=== PATIENT | male | born 1960 | race Caucasian/White ===

== ENCOUNTER 2019-12-22 23:30 | Observation (INO) | payer SELFPAY ==
--- NOTE | ~2019-12-22 | CT_ITS ---
EXAMINATION: CT abdomen pelvis wo con DATE: 12/23/2019 09:55 INDICATION: Microscopic hematuria TECHNIQUE: Computed tomography (CT) of the abdomen and pelvis was performed without intravenous contr ast. The dose-length product (DLP) was 211.18 mGy-cm. Automated exposure control and iterative recons truction technique were employed. COMPARISON: 11/11/2010 FINDINGS: Minimal dependent atelectasis is present in the lung bases. The heart size is normal. There are healing bilateral rib fractures. The liver, spleen, pancreas, gallbladder, and adrenal glands ar e normal. There is a 1.5 cm cyst of the left kidney. There is a 6 mm hemorrhagic cyst of the left kid dulce. The right kidney is unremarkable. No stones are identified in the kidneys, ureters, or bladder. There is no hydronephrosis or hydroureter. A retroaortic left renal vein is noted. No pathologically enlarged abdominal or pelvic lymph nodes are identified. There is no free intraperitoneal gas or evid ence of bowel obstruction. There is severe spondylosis at L5-S1. IMPRESSION: 1. No CT correlate for the patient's symptoms. 2. Healing bilateral rib fractures. Reviewed, dictated and finalized at location A. ETIC SURVEYOR TECHNOLOGIST
[2019-12-22 23:32] VITALS: BP 134/113; PULSE 115; RESP 21; TEMP 36.7; O2SAT 95
--- NOTE | 2019-12-22 23:44 | ECG_ITS ---
Measurements Intervals [place] Rate: 107 P: 78 VT: 147 QRS: 73 QRSD: 86 T: 75 QT: 329 QTc: 440 Interpretive Statements SINUS TACHYCARDIA ATRIAL COUPLET BASELINE ARTIFACT- I, II, III, AVR, AVL, AVF, V1 ABNORMAL ECG Electronically Signed On 12-23-2019 6:55:13 HOUSEKEEPING CLEANER by Jareth Lee D.O.
[2019-12-23] VITALS (12 sets, daily range): BP systolic 127–148; BP diastolic 87–95; PULSE 95–116; RESP 16–26; TEMP 36.1–36.8; O2SAT 96–100; BMI 16.5
--- NOTE | 2019-12-23 00:02 | ED.OVERDOSE ---
HPI - Overdose General Chief Complaint: Overdose Stated Complaint: etoh Time Seen by Provider: 12/22/19 23:30 Source: patient and EMS Mode of arrival: EMS Limitations: no limitations History of Present Illness HPI Narrative: Patient is a 59-year-old male who presents to the emergency department with report of isopropyl alcohol ingestion. Patient states he drank half a bottle of rubbing alcohol today in attempts to get intoxicated. Patient is an alcoholic and normally drinks a pint of vodka daily. Patient states he had no ethanol in the house, hence why he drinks rubbing alcohol. Patient denies any suicidal or homicidal ideation and was not trying to harm himself. Patient denies any other symptoms or problems at this time. complaint: intentional overdose Onset (ago): unknown (sometime today) Intent: other (wanted to get drunk and did not have ethanol in the house) Context: Intentional Overdose: drug/ETOH problems Treatments Prior to Arrival: IV fluids and other (Thiamine 100 mg IV) Related Data Allergies Allergy/AdvReac Type Severity Reaction Status Date / Time morphine Allergy Unknown Verified 01/17/15 10:25 Review of Systems Review of Systems: All systems reviewed & are unremarkable except as noted in HPI and below Gastrointestinal: Gastrointestinal: Denies abdominal pain, Denies nausea and Denies vomiting PMFSH Past Medical History Medical History (Updated 12/23/19 @ 02:11 by Stefanie Simmons MD) Alcoholism Community acquired pneumonia COPD (chronic obstructive pulmonary disease) Diverticulosis Duodenal ulcer Gastritis GI bleed Hypertension Schatzki's ring Surgical History Surgical History (Updated 12/23/19 @ 00:09 by Stefanie Simmons MD) History of colonoscopy History of esophagogastroduodenoscopy (EGD) Family History Family History (Updated 06/23/14 @ 07:13 by DOCTOR UNKNOWN) Grandparent Family history of lymphoma Family history of heart disease in male family member before age 55 Social History Social History (Updated 12/23/19 @ 00:11 by Stefanie Simmons MD) Smoking packs per day: 1 Smoking cigarettes per day: 20.0 Smoking status: Current every day smoker Tobacco type: cigarettes Alcohol intake: current Alcohol use details: Alcoholic, drinks 1 pint of vodka daily Gender identity (if verbalized by the patient): Male Exam Const: General: cooperative, no acute distress, alert and ill appearing Nutritional Appearance: thin Orientation/consciousness: patient oriented x3 Limitations: no limitations HENMT: Mouth: Yes lip normal and Yes moist mucous membranes Resp: Effort & Inspection: normal respiratory effort Auscultation: clear to auscultation bilaterally Cardio: Rate: tachycardic Rhythm: regular rhythm GI: GI Palp: Yes Soft to palpation and No Tenderness to palpation present (GI) Auscultation: normal bowel sounds Skin: General skin exam: normal color Neuro: General: patient oriented x3 Cognition (Neuro): normal cognition Speech: normal speech Extrem: General: normal to inspection, full ROM and no clubbing, cyanosis or edema Psych: Mental Status: mental status grossly normal Affect: normal affect Attitude: cooperative Course Course Emergency Course: Patient presents with isopropyl alcohol ingestion and states she has symptomatic anemia he has influenza and with attempt to get intoxicated as patient had no ethanol at home. Probably poison control and she contacted and given patient clinically stable, supportive care recommended. Patient remains alert and appropriate on reevaluation. Patient advised admission plan. We will continue hydration. Consultations Consultation #1: Case discussed with Dr. Yan, drawer in hand, who advised patient sounds suitable for stepdown unit (IMU). Advised would except ICU of hospitalist felt uncomfortable with patient in IMU. Date: 12/23/19 Time: 01:52 Consultation #2: Case discussed with Dr. Mcqueen, hospitalist, w
--- NOTE | 2019-12-23 00:03 | PC.NURSE ---
called poison control at will fax information to us...supportative care
[2019-12-23 00:18] LABS: Alveolar/Arterial O2 Gradient 41.7 mmHg; Base Excess ABG 7.9 mEq/l (+/-2.0); Fractional Inspired Oxygen 21 %; Oxygen Content ABG 16.1 %vol (16.0-22.0); Oxygen Saturation ABG 91.8 % (95.0-100.0); Oxyhemoglobin 86.8 % THb (90.0-100.0); PCO2 ABG 42.5 mmHg (35.0-45.0); PO2 ABG 57.1 mmHg (80.0-100.0); PO2 FiO2 Ratio Arterial Blood 2.72 %; Total Hemoglobin 13.2 g/dL (12.0-18.0); pH ABG 7.494 (7.350-7.450)
[2019-12-23 00:19] LABS: Device ROOM AIR; Modified Allen's Test Pass; Site Drawn RIGHT RADIAL
[2019-12-23 00:47] LABS: Basophils Absolute Auto 0.1 K/mm3 (0.0-0.1); Basophils Percent Auto 0.6 % (0.2-1.2); Eosinophils Percent Auto 0.1 % (0-4.4); Hematocrit 34.8 % (42.0-52.0); Immature Granulocyte Absolute 0.04 K/mm3 (0.00-0.031); Immature Granulocyte Percent A 0.4 % (0-0.5); Lymphocytes Absolute Auto 0.63 K/mm3 (0.9-3.2); Lymphocytes Percent Auto 6.2 % (18.3-44.2); Mean Corpuscular HGB Conc 34.5 g/dl (32-36); Mean Corpuscular Hemoglobin 32.4 pg (26-34); Mean Corpuscular Volume 94.1 fl (80-100); Monocytes Absolute Auto 0.7 K/mm3 (0.1-0.6); Monocytes Percent Auto 7.3 % (2.6-8.5); Neutrophils Absolute Auto 8.7 K/mm3 (1.3-6.7); Neutrophils Percent Auto 85.4 % (45.5-73.1); Platelet Count Result 201 k/mm3 (150-375); Red Cell Distribution Width 14.2 % (11.5-14.5); White Blood Count 10.2 K/mm3 (4.5-10.0)
[2019-12-23 00:55] LABS: INR 0.9; Prothrombin Time 11.3 Seconds (11.1-14.7)
[2019-12-23 00:56] LABS: Partial Thromboplastin Time 25.8 SECONDS (22.3-36.8)
[2019-12-23 00:58] LABS: Acetaminophen < 10 ug/mL (10-30); Ethanol < 10 mg/dL (<10); Salicylate < 1.0 mg/dL (2-20)
[2019-12-23] MEDS: SODIUM CHLORIDE 0.9% IV 1,000 ML 999 ML IV CONT (00:58)
[2019-12-23 01:01] LABS: Alanine Aminotransferase 18 U/L (4-50); Albumin Level 4.4 g/dL (3.5-5.1); Alkaline Phosphatase 69 U/L (38-126); Aspartate Amino Transferase 41 U/L (17-59); Bilirubin,Total 0.5 mg/dL (0.2-1.3); Blood Urea Nitrogen 16 mg/dL (9-20); Calcium 8.7 mg/dL (8.4-10.2); Carbon Dioxide 30 mmol/L (22-30); Chloride 91 mmol/L (98-107); Creatine Kinase 153 U/L (55-170); Estimated Glomerular Filt Rate > 60; Glucose 151 mg/dL (75-110); Magnesium 1.8 mg/dL (1.6-2.3); Phosphorus 2.7 mg/dL (2.5-4.5); Potassium 3.8 mmol/L (3.4-5.0); Sodium 137 mmol/L (137-145)
[2019-12-23 01:35] LABS: Add Urine Microscopic? YES; Appearance Urine Clear (Clear); Bilirubin Urine Negative (Negative); Blood Urine 2+ (Negative); Color Urine Yellow (Yellow); Glucose Urine UA Negative (Negative); Ketones Urine 1+ mg/dL (Negative); Leukocyte Esterase Ur Negative LEU/UL (Negative); Mucus Urine Rare /lpf; Nitrate Urine Negative (Negative); Protein Urine 2+ mg/dL (Negative); RBC Urine >75 /hpf (0-2); Specific Grav Ur 1.025 (1.001-1.035); Squamous Epithelial Cell Urine Rare /hpf (Few)
[2019-12-23 01:54] LABS: Amphetamine Screen Urine Negative (Negative); Barbiturate Screen Urine Negative (Negative); Benzodiazepines Screen Urine Negative (Negative); Cannabinoid Screen Urine Negative (Negative); Cocaine Screen Urine Negative (Negative); Methadone Screen Urine Negative (Negative); Opiate Screen Urine Negative (Negative); Phencyclidine Screen Urine Negative (Negative)
--- NOTE | 2019-12-23 03:19 | PC.NURSE ---
PT REPORTS BEING UNABLE TO AFFORD MEDICATIONS SO HE HAS NOT BEEN TAKING THEM. PT ALSO UNSURE OF WHAT MEDICATIONS HE IS ONE AT THIS TIME.
--- NOTE | 2019-12-23 03:25 | PC.NURSE ---
POISON CONTROL CALLED FOR UPDATE.
[2019-12-23] MEDS: LORAZEPAM INJ 2 MG/ML VIAL 1 MG IV PUSH (03:49)
[2019-12-23] MEDS: SODIUM CHLORIDE 0.9% IV 1,000 ML 150 ML IV CONT (03:51)
--- NOTE | 2019-12-23 04:11 | ADMGEN ---
This patient, Deniz Waggoner, was admitted to IMU Room 201-01. Patient/family oriented to hospital policies and general routines including ID bracelet, bed and alarms, visiting hours, pain management, procedures, bathroom and other care routines, personal items, smoking policy, room service/diet, and visiting hours. Valuables list has been completed. Information on how to activate the Rapid Response Team has been discussed. Patient/Family are encouraged to report perceived risks to care and to ask questions if they do not understand what they are told or what they should do.
--- NOTE | 2019-12-23 08:45 | PM.IMHP ---
H&P: HPI History of Present Illness Chief complaint: isopropyl alcohol poisoning alcoholism Narrative: Date of visit 12/23/2019 0815. Deniz Waggoner is a 59 year old white male alcoholic with hypertension and COPD who is sound found at home lethargic at approximately 4:00 p.m. on the and discovered he had germaine at least a bottle isopropyl alcohol. There is no of self-harm, simply ran out of alcohol and was trying to get intoxicated. He usually drinks at least a pt of vodka daily. He arrived at the emergency room some 6 hours later with no symptoms of lightheadedness, altered mental status, or abdominal pain. Was evaluated and thought he should be admitted. He did have 1+ ketones in his urine. Review of Systems Review of Systems: Narrative: Constitutional weight has been steady appetite fair Eye no double vision or scotoma Mouth no pharyngitis laryngitis Pulmonary occasional shortness breath for which she uses inhaler CV no chest pain or palpitations GI no recent symptomatology with history of peptic ulcer disease completing ulcer in the distant past last EGD here in 2015 showed no varices denied any dysuria or urinary symptoms but would not elaborate but said occasionally has blood in his urine Muscle skeletal occasional pain and ankle from previous fracture Neuro psych states that he has gone through detoxification in the past primarily does with agitation and no history of seizures or DTs PMFSH Past Medical History Medical History (Updated 12/23/19 @ 08:52 by Julio Glass MD) Alcoholism Community acquired pneumonia COPD (chronic obstructive pulmonary disease) Diverticulosis Duodenal ulcer Gastritis GI bleed Hypertension Schatzki's ring Surgical History Surgical History (Updated 12/23/19 @ 00:09 by Stefanie Simmons MD) History of colonoscopy History of esophagogastroduodenoscopy (EGD) Social History Social History (Updated 12/23/19 @ 00:11 by Stefanie Simmons MD) Smoking packs per day: 1 Smoking cigarettes per day: 20.0 Smoking status: Current every day smoker Tobacco type: cigarettes Second hand tobacco smoke exposure: Yes Alcohol intake: current Drinks per week: 7 Alcohol use details: Alcoholic, drinks 1 pint of vodka daily Substance use: never Substance use type: does not use Other substance usage details: patient states his drinking varies day to day Gender identity (if verbalized by the patient): Male Spiritual care concerns: No Agree to blood products: Yes Meds Home Medications and Allergies Home Medications Medication Instructions Recorded Confirmed Type albuterol sulfate 2.5 mg INHALATION Q6H 12/23/19 12/23/19 History ascorbic acid (vitamin C) 1 g PO DAILY 12/23/19 12/23/19 History cholecalciferol (vitamin D3) 1,250 mcg PO DAILY 12/23/19 12/23/19 History [D3-50 Cholecalciferol] lisinopril 20 mg PO DAILY 12/23/19 12/23/19 History vitamin B complex [B-Complex] 1 tablet PO DAILY 12/23/19 12/23/19 History Allergies Allergy/AdvReac Type Severity Reaction Status Date / Time morphine Allergy Unknown Verified 01/17/15 10:25 Vital Signs Vital Signs - 24 hr 12/22/19 23:32 12/23/19 00:23 12/23/19 01:34 Temperature 36.7 C Pulse Rate 115 H 104 H 115 H Pulse Rate [Bilateral Radial Palpation] Respiratory Rate 21 H 24 H 16 Blood Pressure 134/113 H 128/92 H 143/89 H Pulse Oximetry 95 100 100 12/23/19 02:40 12/23/19 03:34 12/23/19 03:45 Temperature 36.8 C Pulse Rate 102 H 95 Pulse Rate [Bilateral Radial Palpation] 101 H Respiratory Rate 16 19 Blood Pressure 127/87 142/90 H 134/88 Pulse Oximetry 100 98 12/23/19 03:52 12/23/19 04:00 12/23/19 08:00 Temperature 36.7 C 36.1 C L Pulse Rate 103 H 113 H 102 H Pulse Rate [Bilateral Radial Palpation] 113 H Respiratory Rate 20 22 H Blood Pressure 134/88 148/95 H Pulse Oximetry 97 97 Exam Narrative: Exam Narrative: Blood pressure 148/94 pulse is 96 satura
[2019-12-23] MEDS: VITAMIN B COMPLEX CAPSULE 1 CAP PO (09:33)
[2019-12-23] MEDS: lisinopriL 20 MG TABLET PO (09:33)
[2019-12-23] MEDS: ASCORBIC ACID 500 MG TABLET 1000 MG PO (09:33)
[2019-12-23] MEDS: PANTOPRAZOLE 40 MG TABLET PO (09:41)
[2019-12-23] MEDS: ONDANSETRON INJ 4 MG/2 ML VIAL IV PUSH (09:43)
[2019-12-23] MEDS: ALBUTEROL SULFATE NEB 2.5 MG/0.5 ML INH (11:29)
[2019-12-23] MEDS: IPRATROPIUM BR 0.02% INH SOLN 0.5 MG/2.5 ML VIAL (11:29)
--- NOTE | 2019-12-23 13:43 | PCNSR ---
On 12/23/19, the student, La Graves, provided care and completed [facility] documentation on this patient. I have reviewed the student's documentation and agree with the findings.
--- NOTE | 2019-12-23 18:32 | PM.DS ---
DS: Diagnosis Admitting Diagnosis Admitting Diagnosis: Toxic effect of 2-Propanol, accidental (unintentional), initial encounter Discharge Diagnosis (1) Isopropyl alcohol poisoning: Code(s): T51.2X1A - Toxic effect of 2-Propanol, accidental (unintentional), initial encounter Status: Acute Assessment and Plan: Patient is out of the window of concern for the isopropyl alcohol ingestion and only had 1+ ketones in his initial urinalysis. He has been hydrated and will be able to be discharged today (2) Alcoholism: Code(s): F10.20 - Alcohol dependence, uncomplicated Status: Acute Assessment and Plan: Ongoing alcohol problem. Been given thiamin and benzo diazepam while here with only symptoms of very mild withdrawal that is tremor and mild tachycardia. (3) Microscopic hematuria: Code(s): R31.29 - Other microscopic hematuria Status: Acute Assessment and Plan: Per urinalysis. Asymptomatic but patient gives a history of intermittent gross hematuria. Needs further evaluation probably with urologist cysto Noncontrast CT scan abdomen and pelvis showed no source of hematuria. Benign renal cyst only (4) COPD (chronic obstructive pulmonary disease): Code(s): J44.9 - Chronic obstructive pulmonary disease, unspecified Status: Acute Assessment and Plan: Ongoing controlled will use his updraft, patient states not unusual for him to wheeze on a daily basis (5) Hypertension: Code(s): I10 - Essential (primary) hypertension Status: Acute Assessment and Plan: Continue his anti hypertensive probably poor controlled poor compliance DS: Summary Hospital Course Hospital Course: 59-year-old hypertensive alcoholic with COPD admitted to the hospital for observation after ingesting unknown quantity of isopropyl alcohol when he could not obtain any alcohol. His son found him and brought into the emergency room some 6 hours after ingestion with no on toward effects. Did have 1+ ketones urine only. With discharged home to the care of his family follow-up with the primary care for further evaluation of microscopic hematuria Time Spent with Patient Time attestation: Total time spent providing and/or coordinating discharge services: 35 minutes Exam Narrative: Exam Narrative: Condition on discharge Blood pressure 144/92 pulse is 100 regular afebrile Lungs prolonged expiratory phase very faint end expiratory wheeze CV tachy no murmurs or gallops Abdomen is soft nontender no masses Extremities without edema distal pulses 2+ Neuro alert no focal deficits oriented x3 With hydrated and tolerated a diet well and able to be discharged home to follow-up with his primary care DS: Data Data Completed and Pending Labs on day of discharge: Labs from last 24 hours 12/23/19 12/23/19 12/23/19 01:22 01:22 01:22 WBC RBC Hgb Hct MCV MCH MCHC RDW Plt Count MPV Immature Gran % (Auto) Neut % (Auto) Lymph % (Auto) [place] % (Auto) Eos % (Auto) Baso % (Auto) Lymph # (Auto) [place] # (Auto) Eos # (Auto) Baso # (Auto) Abs Immat Gran (auto) Absolute Neuts (auto) Absolute Nucleated RBC Nucleated RBC % PT INR APTT Puncture Site ABG pH ABG pCO2 ABG pO2 ABG PO2/FiO2 Ratio ABG HCO3 ABG O2 Saturation ABG O2 Content ABG Base Excess A-a Gradient Oxyhemoglobin Total Hemoglobin O2 Delivery Device O2 Liters/Min FiO2 Sodium Potassium Chloride Carbon Dioxide BUN Creatinine Estim Creat Clear Calc Estimated GFR Glucose Serum Osmolality Calcium Phosphorus Magnesium Total Bilirubin AST ALT Alkaline Phosphatase Total Creatine Kinase Total Protein Albumin Urine Color Yellow Urine Appearance Clear Urine pH 8.0 Ur Specific [place] 1.025 Urine Protein 2+ H Urine Glucose (UA
[2019-12-27 11:51] LABS: Methyl Alcohol Level None Detected (None Detected)
== END 2019-12-23 12:00 | disposition home or self-care (01) ==
LOC: ANHED 12-23 02:11 → ANHIMU 12-23 03:11
PROVIDERS: Admitting Provider Internal Medicine; Emergency Provider Emergency Medicine; PCP Family Medicine; Visit Provider Internal Medicine
DX: T51.2X1A Toxic effect of 2-Propanol, accidental (unintentional), initial encounter (principal); F10.230 Alcohol dependence with withdrawal, uncomplicated; F17.210 Nicotine dependence, cigarettes, uncomplicated; R31.29 Other microscopic hematuria; J44.9 Chronic obstructive pulmonary disease, unspecified; I10 Essential (primary) hypertension
CPT/HCPCS: 36415; 36600; 74176; 80053; 80307; 80320; 81001; 82550; 82693; 82805; 83735; 83930; 84100; 84600; 85025; 85610; 85730; 93005; 94640; 96374; 96375; 99285; A9270; G0378; G0379; J2060; J2405; J7030

== ENCOUNTER 2020-06-06 15:53 | Observation (INO) | payer MEDICAID, SELFPAY ==
[2020-06-06] VITALS (10 sets, daily range): BP systolic 89–149; BP diastolic 59–107; PULSE 79–114; RESP 16–20; TEMP 36.3–36.7; O2SAT 87–97; BMI 22.6
--- NOTE | ~2020-06-06 | CT_ITS ---
EXAMINATION: CT abdomen pelvis w con EXAM DATE: 06/06/2020 17:55 INDICATION: Hematuria for 10 days, passing blood clots. TECHNIQUE: Spiral CT of the abdomen and pelvis was performed following intravenous injection of 100 m L Omnipaque 350. Axial, coronal and sagittal images were reviewed. The dose-length product (DLP) fo r this examination was 508.13 mGy-cm. The exposure was tailored according to patient size (auto mA e xposure control), and iterative reconstruction (ASIR) was used as additional dose reduction technique . Comparison is made to prior examination from 12/23/2019. FINDINGS: The liver, spleen, adrenal glands and pancreas are unremarkable. Gallbladder is unremarkab le. No biliary obstruction. Portal and splenic veins are patent. Kidneys enhance symmetrically. T here is no hydronephrosis. The prostate is unremarkable. There is right lateral bladder wall diver ticulum measuring 2 cm. There is a left renal cyst measuring 2 cm. There is no retroperitoneal or pe lvic lymphadenopathy. There is mild scattered arteriosclerotic disease. The appendix is normal. The stomach and small bowel are unremarkable. There is expected amount of c olonic stool. No free intraperitoneal gas. The heart is normal in size. There are no pericardial or pleural effusions. The lung bases are unremarkable. Bilateral lower rib fractures, varying stag es of subacute to chronic healing. IMPRESSION: 1. Small bladder diverticulum. 2. Left renal cyst, otherwise unremarkable kidneys. Reviewed, dictated and finalized at location A.
--- NOTE | ~2020-06-06 | XR_ITS ---
EXAMINATION: XR chest 1V EXAM DATE: 06/06/2020 17:58 INDICATION: Hypertension, cough and dyspnea. TECHNIQUE: Portable AP frontal chest x-ray was obtained. Comparison is made to prior examination from 01/24/2011. FINDINGS: The lungs are clear. There are no pleural effusions. The cardiomediastinal silhouette is within normal limits. There is no pneumothorax suspected. Bilateral lower rib fractures, subacute t o chronic. IMPRESSION: No acute cardiopulmonary findings. Reviewed, dictated and finalized at location A.
--- NOTE | ~2020-06-06 | CT_ITS ---
EXAMINATION: CT brain wo con EXAM DATE: 06/06/2020 17:54 INDICATION: Altered mental status. TECHNIQUE: Spiral CT of the head was performed without contrast. Axial, coronal and sagittal images were reviewed. The dose-length product (DLP) for this examination was 681.00 mGy-cm. The exposure w as tailored according to patient size, and iterative reconstruction (ASIR) was used as additional dos e reduction technique. Comparison is made to prior examination from 11/07/2010. FINDINGS: There is no acute intraparenchymal hemorrhage. No evidence of intraparenchymal brain mass lesion. No evidence of acute infarction. Mild microangiopathy and cerebral atrophy. There is no mass effect or midline shift. The ventricles are normal in size. There are no extra-axial collections. There are no acute calvarial fractures. The orbits are unremarkable. Soft tissue is unremarkable. The visualized sinuses and mastoid air cells are well aerated. IMPRESSION: No acute intracranial findings. Reviewed, dictated and finalized at location A.
--- NOTE | 2020-06-06 16:36 | ED.FEMALEGU ---
HPI - Female Genitourinary General Chief complaint: Urogenital-Male Stated complaint: hematuria/low bp and o2 Time Seen by Provider: 06/06/20 16:36 Source: patient and family Mode of arrival: ambulatory Limitations: no limitations History of Present Illness HPI Narrative: Patient is a 60-year-old male with a history of COPD, hypertension, chronic alcohol use who presents for evaluation of hematuria. Patient reports a 10-day history of gross hematuria and blood clots with urination. Patient denies dysuria, hesitancy or frequency. No flank pain or history of kidney stone. Patient denies fever or chills. He reports intermittent nausea, he reports chronic cough, he reports chronic shortness of breath with heat which he states are all at baseline for him. He denies any chest pain. Patient states he drinks approximately a pint of alcohol daily. He is a daily smoker. He states that he was without his inhaler prescription which can sometimes worsen his COPD. Patient denies fever, chills, COVID exposures known to him. Pt denies drinking any isopropyl alcohol. Related Data Home Medications Medication Instructions Recorded Confirmed albuterol sulfate 2.5 mg INHALATION Q6H 12/23/19 12/23/19 ascorbic acid (vitamin C) 1 g PO DAILY 12/23/19 12/23/19 cholecalciferol (vitamin D3) 1,250 mcg PO DAILY 12/23/19 12/23/19 [D3-50 Cholecalciferol] lisinopril 20 mg PO DAILY 12/23/19 12/23/19 vitamin B complex [B-Complex] 1 tablet PO DAILY 12/23/19 12/23/19 Allergies Allergy/AdvReac Type Severity Reaction Status Date / Time morphine Allergy Unknown Flushing Verified 06/06/20 16:56 Review of Systems Review of Systems: Narrative: CONSTITUTIONAL: Denies fever, chills, or sweats. EYES: Denies visual changes, redness, or discharge. ENT: Reports rhinorrhea and congestion CARDIOVASCULAR: Denies chest pain, palpitations, or edema. RESPIRATORY: Reports chronic cough and shortness of breath GASTROINTESTINAL: Denies abdominal pain, reports nausea, denies vomiting GENITOURINARY: Denies dysuria, reports hematuria SKIN: Denies rash or itching. MUSCULOSKELETAL: Denies back pain, joint pain, or myalgia. NEUROLOGIC: Denies headache, numbness, or weakness. PMFSH Past Medical History Medical History Alcoholism Community acquired pneumonia COPD (chronic obstructive pulmonary disease) Diverticulosis Duodenal ulcer Gastritis GI bleed Hypertension Schatzki's ring Surgical History Surgical History History of colonoscopy History of esophagogastroduodenoscopy (EGD) Family History Family History Grandparent Family history of lymphoma Family history of heart disease in male family member before age 55 Social History Social History Smoking packs per day: 1 Smoking cigarettes per day: 20.0 Smoking status: Current every day smoker Tobacco type: cigarettes Second hand tobacco smoke exposure: Yes Alcohol intake: current Drinks per week: 7 Substance use: never Substance use type: does not use Other substance usage details: patient states his drinking varies day to day Gender identity (if verbalized by the patient): Male Spiritual care concerns: No Agree to blood products: Yes Exam Narrative: Exam Narrative: GENERAL: Awake, alert, conversant, intoxicated HEAD: Normocephalic, atraumatic. EYES: PERRLA and EOMI. ENT: Nares clear, no rhinorrhea or epistaxis. Mucous membranes moist. NECK: Supple. CHEST: No respiratory distress, breathing even and non labored, coarse breath sounds bilaterally, expiratory wheezing at the bases HEART: Tachycardic rate, sinus rhythm ABDOMEN:Non distended, non tender, no suprapubic tenderness EXTREMITIES: Normal range of motion. No edema. SKIN: Warm, dry, no rash. NEURO:No focal defic
[2020-06-06 16:42] LABS: Basophils Absolute Auto 0.1 K/mm3 (0.0-0.1); Basophils Percent Auto 1.3 % (0.2-1.2); Eosinophils Absolute Auto 0.2 K/mm3 (0-0.3); Eosinophils Percent Auto 1.8 % (0-4.4); Hemoglobin 10.4 g/dL (14.0-18.0); Immature Granulocyte Absolute 0.06 K/mm3 (0.00-0.031); Immature Granulocyte Percent A 0.7 % (0-0.5); Mean Corpuscular HGB Conc 31.5 g/dl (32-36); Mean Corpuscular Hemoglobin 28.2 pg (26-34); Mean Corpuscular Volume 89.4 fl (80-100); Mean Platelet Volume 8.7 fl (7.4-10.4); Monocytes Absolute Auto 0.8 K/mm3 (0.1-0.6); Monocytes Percent Auto 9.2 % (2.6-8.5); Neutrophils Absolute Auto 5.8 K/mm3 (1.3-6.7); Platelet Count Result 348 k/mm3 (150-375); Red Blood Count 3.69 M/mm3 (4.6-6.20); Red Cell Distribution Width 19.3 % (11.5-14.5); White Blood Count 8.4 K/mm3 (4.5-10.0)
--- NOTE | 2020-06-06 16:45 | ECG_ITS ---
Measurements Intervals [place] Rate: 105 P: 49 [place]: 121 QRS: 77 QRSD: 82 T: 72 QT: 336 QTc: 444 Interpretive Statements SINUS TACHYCARDIA MINIMAL Q WAVES- INFERIOR LEADS ABNORMAL ECG Electronically Signed On 06-06-2020 19:35:04 CDT by Jareth Lee D.O.
[2020-06-06 16:52] LABS: Alanine Aminotransferase 11 U/L (4-50); Alkaline Phosphatase 76 U/L (38-126); Anion Gap 15 mmol/L (8-16); Aspartate Amino Transferase 36 U/L (17-59); Bilirubin,Total 0.2 mg/dL (0.2-1.3); Blood Urea Nitrogen 20 mg/dL (9-20); Calcium 8.3 mg/dL (8.4-10.2); Carbon Dioxide 22 mmol/L (22-30); Chloride 96 mmol/L (98-107); Estimated CRCL calculation 60 ml/min; Estimated Glomerular Filt Rate > 60; Glucose 75 mg/dL (75-110); Lipase 141 U/L (23-300); Potassium 4.3 mmol/L (3.4-5.0); Sodium 133 mmol/L (137-145)
[2020-06-06 16:53] LABS: INR 0.8; Prothrombin Time 10.8 Seconds (11.1-14.7)
[2020-06-06 16:54] LABS: Partial Thromboplastin Time 25.2 SECONDS (22.3-36.8)
[2020-06-06] MEDS: SODIUM CHLORIDE 0.9% IV 1,000 ML 999 ML IV CONT ×2 (16:55→18:05)
[2020-06-06 17:13] LABS: Alveolar/Arterial O2 Gradient 45.3 mmHg; Base Excess ABG -5.8 mEq/l (+/-2.0); Fractional Inspired Oxygen 28 %; HCO3 ABG 20.5 mEq/l (22.0-26.0); Oxygen Content ABG 14.4 %vol (16.0-22.0); Oxygen Saturation ABG 97.1 % (95.0-100.0); Oxyhemoglobin 91.8 % THb (90.0-100.0); PCO2 ABG 43.7 mmHg (35.0-45.0); PO2 ABG 102.8 mmHg (80.0-100.0); PO2 FiO2 Ratio Arterial Blood 3.67 %
[2020-06-06 17:14] LABS: Device NASAL CANNULA; Modified Allen's Test Pass; Site Drawn LEFT RADIAL
[2020-06-06 17:35] LABS: Ammonia < 9 umol/L (9-30); Ethanol 292 mg/dL (<10)
[2020-06-06 17:38] LABS: Lactic Acid Reflex 4.5 mmol/L (0.7-2.1)
[2020-06-06 17:49] LABS: Troponin I 0.012 ng/mL (0.000-0.034)
[2020-06-06 18:32] LABS: Creatine Kinase 95 U/L (55-170)
--- NOTE | 2020-06-06 18:33 | PC.NURSE ---
1830 oxygen on at 2L for sao2 88%
[2020-06-06 18:40] LABS: Amphetamine Screen Urine Negative (Negative); Barbiturate Screen Urine Negative (Negative); Benzodiazepines Screen Urine Negative (Negative); Cannabinoid Screen Urine Negative (Negative); Cocaine Screen Urine Negative (Negative); Methadone Screen Urine Negative (Negative); Opiate Screen Urine Negative (Negative); Phencyclidine Screen Urine Negative (Negative)
[2020-06-06 19:08] LABS: Add Urine Microscopic? YES; Appearance Urine Cloudy (Clear); Bilirubin Urine Negative (Negative); Blood Urine 3+ (Negative); Glucose Urine UA Negative (Negative); Ketones Urine Negative (Negative); Leukocyte Esterase Ur Negative LEU/UL (Negative); Mucus Urine Rare /lpf; Nitrate Urine Negative (Negative); Protein Urine 2+ mg/dL (Negative); RBC Urine >75 /hpf (0-2); Specific Grav Ur 1.027 (1.001-1.035); Urobilinogen Urine Negative mg/dL (<2.0); WBC Clumps Urine Present /HPF; WBC Urine >75 /hpf
[2020-06-06 19:09] LABS: Color Urine Dark Yellow (Yellow)
[2020-06-06 20:23] LABS: Reflex Lactic Acid Yes or No Add Lactic
[2020-06-06] MEDS: NICOTINE (*PBKC) 14 MG PATCH 1 PATCH TRANSDERM (21:13)
--- NOTE | 2020-06-06 21:33 | ADMGEN ---
This patient, Deniz Waggoner, was admitted to IMU Room 212-01. Patient/family oriented to hospital policies and general routines including ID bracelet, bed and alarms, visiting hours, pain management, procedures, bathroom and other care routines, personal items, smoking policy, room service/diet, and visiting hours. Valuables list has been completed. Information on how to activate the Rapid Response Team has been discussed. Patient/Family are encouraged to report perceived risks to care and to ask questions if they do not understand what they are told or what they should do.
[2020-06-07] VITALS (21 sets, daily range): BP systolic 143–180; BP diastolic 95–105; PULSE 73–107; RESP 16–22; TEMP 36.2–36.8; O2SAT 94–99
[2020-06-07 04:36] LABS: Hematocrit 30.1 % (42.0-52.0); Hemoglobin 9.5 g/dL (14.0-18.0); Mean Corpuscular HGB Conc 31.6 g/dl (32-36); Mean Corpuscular Hemoglobin 27.8 pg (26-34); Mean Platelet Volume 8.5 fl (7.4-10.4); Platelet Count Result 300 k/mm3 (150-375); Red Blood Count 3.42 M/mm3 (4.6-6.20); Red Cell Distribution Width 18.9 % (11.5-14.5); White Blood Count 8.6 K/mm3 (4.5-10.0)
[2020-06-07 04:50] LABS: Lactic Acid 1.1 mmol/L (0.7-2.1)
[2020-06-07 05:07] LABS: Anion Gap 8 mmol/L (8-16); Blood Urea Nitrogen 13 mg/dL (9-20); Calcium 7.9 mg/dL (8.4-10.2); Carbon Dioxide 26 mmol/L (22-30); Chloride 99 mmol/L (98-107); Estimated CRCL calculation 114 ml/min; Estimated Glomerular Filt Rate > 60; Glucose 97 mg/dL (75-110); Magnesium 1.8 mg/dL (1.6-2.3); Phosphorus 2.8 mg/dL (2.5-4.5); Potassium 4.3 mmol/L (3.4-5.0); Sodium 133 mmol/L (137-145)
[2020-06-07] MEDS: ALBUTEROL SULFATE NEB 2.5 MG/3 ML INH INHALATION ×2 (08:42→13:45)
[2020-06-07] MEDS: ASCORBIC ACID 500 MG TABLET 1000 MG PO (09:26)
[2020-06-07] MEDS: lisinopriL 20 MG TABLET PO (09:27)
[2020-06-07] MEDS: THIAMINE HCL 100 MG TABLET PO (09:27)
[2020-06-07] MEDS: VITAMIN B COMPLEX CAPSULE 1 CAP PO (09:27)
--- NOTE | 2020-06-07 14:25 | WPDURCON ---
Assessment and Plan Assessment and plan (1) Gross hematuria: Code(s): R31.0 - Gross hematuria Status: Acute Assessment and Plan: CT shows a small bladder diverticulum and a renal cyst that is benign. Urine culture is pending, continue IV antibiotics, tailor to culture results, likely a UTI which would be the source of the gross hematuria. Patient will need to follow up as an outpatient for a cystoscopy in the office with Dr. Mcgovern and to have a PSA done at that time once infection resolves. NO further evaluation needed at this time. Ok to discharge when otherwise stable with appropriate oral antibiotics. (2) BPH (benign prostatic hyperplasia): Code(s): N40.0 - Benign prostatic hyperplasia without lower urinary tract symptoms Status: Acute Assessment and Plan: Start and continue Flomax. Urology Consult Note HPI Date Seen: 06/07/20 Requesting Physician: Julio Glass MD Primary Care Provider: Harpal Kasper MD Consult Narrative Narrative: Deniz Waggoner is a 60 year old male who presented to the ER yesterday with worsening gross hematuria x 10 days and blood clots. His urine is caren in color today without clots. He denies dysuria, fever, abdominal pain, flank pain, but does state he has had hesitancy and straining with urination as well as nocturia and frequency for several months. He has never seen a urologist and never had gross hematuria before. He denies a history of kidney stones and does have a yearly physical with his PCP but is unsure of his last PSA. His WBC is 8.6, creatinine 0.60, UA is suspicious for a UTI and urine culture is pending. He has a history of alcoholism and has been diagnosed with septic shock and lactic acidosis. He also has a history of COPD. CT abdomen/pelvis with contrast shows a small bladder diverticulum and a left renal cyst, otherwise unremarkable kidneys. Review of Systems Cardiovascular: Cardiovascular: Denies chest pain Respiratory: Respiratory: Reports dyspnea Gastrointestinal: Gastrointestinal: Denies abdominal pain, Denies nausea and Denies vomiting Genitourinary: Genitourinary: Reports hematuria, Denies genital pain, Denies dysuria, Denies flank pain, Reports urinary frequency, Reports urinary hesitancy and Reports urinary urgency [facility] Past Medical History Medical History Alcoholism Community acquired pneumonia COPD (chronic obstructive pulmonary disease) Diverticulosis Duodenal ulcer Gastritis GI bleed Hypertension Schatzki's ring Surgical History Surgical History History of colonoscopy History of esophagogastroduodenoscopy (EGD) Family History Family History Grandparent Family history of lymphoma Family history of heart disease in male family member before age 55 Social History Social History Smoking packs per day: 1.5 Smoking cigarettes per day: 30.0 Years smoked: 40 Smoking pack-years: 60.00 Smoking status: Current every day smoker Tobacco type: cigarettes Second hand tobacco smoke exposure: Yes Alcohol intake: current Drinks per week: 20 Substance use: never Substance use type: does not use Other substance usage details: drinks a pint of gin a day Gender identity (if verbalized by the patient): Male Spiritual care concerns: No Agree to blood products: Yes Meds Home Medications and Allergies Home Medications Medication Instructions Recorded Confirmed Type albuterol sulfate 2.5 mg INHALATION Q6H 12/23/19 06/06/20 History ascorbic acid (vitamin C) 1 g PO DAILY 12/23/19 06/06/20 History cholecalciferol (vitamin D3) 1,250 mcg PO DAILY 12/23/19 06/06/20 History [D3-50 Cholecalciferol] lisinopril 20 mg PO DAILY 12/23/19 06/06/20 History vitamin B com
[2020-06-07] MEDS: chlordiazePOXIDE 10 MG CAPSULE PO ×2 (14:56→21:25)
--- NOTE | 2020-06-07 17:25 | PM.IMHP ---
H&P: HPI History of Present Illness Date/Time: 06/07/20 17:25 Chief complaint: Septic shock, dehydration Narrative: Deniz Waggoner is a 60 year old male admitted with hematuria for 10 days ? uti? prostate issues. Pt is known to have COPD, and is an chronic alcholic and has a history of HTN also. Smokes and drinks alcholol 1 pint if gin a day. Pt also admitted with septic shock and lactic acidosis. Urology consult ordered. Review of Systems Review of Systems: ROS unobtainable: Yes other (Hematuria and anxiety issues urinary frequency ) [facility] Past Medical History Medical History Alcoholism Community acquired pneumonia COPD (chronic obstructive pulmonary disease) Diverticulosis Duodenal ulcer Gastritis GI bleed Hypertension Schatzki's ring Surgical History Surgical History History of colonoscopy History of esophagogastroduodenoscopy (EGD) Family History Family History Grandparent Family history of lymphoma Family history of heart disease in male family member before age 55 Social History Social History Smoking packs per day: 1.5 Smoking cigarettes per day: 30.0 Years smoked: 40 Smoking pack-years: 60.00 Smoking status: Current every day smoker Tobacco type: cigarettes Second hand tobacco smoke exposure: Yes Alcohol intake: current Drinks per week: 20 Substance use: never Substance use type: does not use Other substance usage details: drinks a pint of gin a day Gender identity (if verbalized by the patient): Male Spiritual care concerns: No Agree to blood products: Yes Meds Home Medications and Allergies Home Medications Medication Instructions Recorded Confirmed Type albuterol sulfate 2.5 mg INHALATION Q6H 12/23/19 06/06/20 History ascorbic acid (vitamin C) 1 g PO DAILY 12/23/19 06/06/20 History cholecalciferol (vitamin D3) 1,250 mcg PO DAILY 12/23/19 06/06/20 History [D3-50 Cholecalciferol] lisinopril 20 mg PO DAILY 12/23/19 06/06/20 History vitamin B complex [B-Complex] 1 tablet PO DAILY 12/23/19 06/06/20 History Allergies Allergy/AdvReac Type Severity Reaction Status Date / Time morphine Allergy Unknown Flushing Verified 06/06/20 16:56 Vital Signs Vital Signs - 24 hr 06/06/20 18:10 06/06/20 20:08 06/06/20 21:09 Temperature Pulse Rate 90 92 97 Respiratory Rate 20 18 20 Blood Pressure 133/87 143/97 H Pulse Oximetry 94 96 92 06/06/20 21:35 06/06/20 21:37 06/06/20 21:56 Temperature 36.3 C L Pulse Rate 80 102 H 90 Respiratory Rate 20 Blood Pressure 147/77 H Pulse Oximetry 94 06/06/20 23:14 06/06/20 23:44 06/07/20 00:00 Temperature 36.3 C L Pulse Rate 93 79 86 Respiratory Rate 20 Blood Pressure 149/81 H Pulse Oximetry 94 93 06/07/20 01:47 06/07/20 04:00 06/07/20 06:00 Temperature 36.7 C Pulse Rate 82 73 86 Respiratory Rate 20 Blood Pressure 175/100 H Pulse Oximetry 97 06/07/20 08:00 06/07/20 08:43 06/07/20 08:45 Temperature 36.8 C Pulse Rate 89 89 89 Respiratory Rate 18 18 Blood Pressure 176/99 H Pulse Oximetry 95 95 06/07/20 08:48 06/07/20 10:00 06/07/20 12:00 Temperature 36.7 C Pulse Rate 89 89 95 Respiratory Rate 18 20 Blood Pressure 143/95 H Pulse Oximetry 99 06/07/20 13:45 06/07/20 14:00 06/07/20 14:26 Temperature Pulse Rate 97 101 H 97 Respiratory Rate 18 18 Blood Pressure Pulse Oximetry 06/07/20 16:00 Temperature 36.6 C Pulse Rate 84 Respiratory Rate 22 H Blood Pressure 156/95 H Pulse Oximetry 97 Exam Const: General: well developed Nutritional Appearance: well nourished HENMT: Head: normocephalic Eyes: General: appearance normal, both eyes and all related structures Pupils: Equal, round and reactive pupi
--- NOTE | 2020-06-07 18:00 | ECG_ITS ---
Measurements Intervals [place] Rate: 128 P: MO: 0 QRS: 48 QRSD: 72 T: 62 QT: 295 QTc: 432 Interpretive Statements SINUS TACHYCARDIA MINIMAL Q WAVES- ANTEROLAT/INF LEADS ABNORMAL ECG Electronically Signed On 06-08-2020 8:05:49 CDT by Jareth Lee D.O.
[2020-06-07] MEDS: TAMSULOSIN HCL 0.4 MG CAPSULE PO (18:32)
[2020-06-07] MEDS: SODIUM CHLORIDE 0.9% IV 1,000 ML 100 ML IV CONT (18:43)
--- NOTE | 2020-06-07 19:42 | PC.NURSE ---
EKG obtained at 1815 for sustained heart rate in the 130-140's. Patient noted to be in sinus tachycardia, with a rate of 128 on EKG. Patient denies chest pain, or shortness of breath. No complaints at this time. Dr. Levy notified of EKG results, no new orders at this time. Will continue to monitor closely.
[2020-06-07] MEDS: LEVALBUTEROL NEB 1.25 MG/3 ML 0.63 MG INHALATION (20:53)
[2020-06-07] MEDS: NICOTINE (*PBKC) 21 MG PATCH 1 PATCH TRANSDERM (21:25)
[2020-06-08] VITALS (22 sets, daily range): BP systolic 128–178; BP diastolic 85–112; PULSE 59–102; RESP 12–20; TEMP 35.9–36.6; O2SAT 87–97
[2020-06-08] MEDS: cloNIDine HCL 0.1 MG TABLET PO (01:08)
[2020-06-08] MEDS: LEVALBUTEROL NEB 1.25 MG/3 ML 0.63 MG INHALATION ×4 (02:27→19:57)
[2020-06-08 04:48] LABS: Hematocrit 31.3 % (42.0-52.0); Hemoglobin 10.1 g/dL (14.0-18.0); Mean Corpuscular HGB Conc 32.3 g/dl (32-36); Mean Corpuscular Hemoglobin 28.4 pg (26-34); Mean Corpuscular Volume 87.9 fl (80-100); Mean Platelet Volume 8.5 fl (7.4-10.4); Platelet Count Result 290 k/mm3 (150-375); Red Blood Count 3.56 M/mm3 (4.6-6.20); Red Cell Distribution Width 18.2 % (11.5-14.5); White Blood Count 6.8 K/mm3 (4.5-10.0)
[2020-06-08] MEDS: chlordiazePOXIDE 10 MG CAPSULE PO ×3 (04:57→20:50)
[2020-06-08] MEDS: SODIUM CHLORIDE 0.9% IV 1,000 ML 100 ML IV CONT ×2 (04:57→15:34)
[2020-06-08 05:05] LABS: Anion Gap 5 mmol/L (8-16); Blood Urea Nitrogen 8 mg/dL (9-20); Calcium 8.2 mg/dL (8.4-10.2); Carbon Dioxide 29 mmol/L (22-30); Chloride 98 mmol/L (98-107); Estimated CRCL calculation 137 ml/min; Estimated Glomerular Filt Rate > 60; Glucose 110 mg/dL (75-110); Potassium 3.8 mmol/L (3.4-5.0); Sodium 132 mmol/L (137-145)
[2020-06-08 05:06] LABS: Lactic Acid 0.6 mmol/L (0.7-2.1)
[2020-06-08] MEDS: VITAMIN B COMPLEX CAPSULE 1 CAP PO (09:43)
[2020-06-08] MEDS: THIAMINE HCL 100 MG TABLET PO (09:43)
[2020-06-08] MEDS: ASCORBIC ACID 500 MG TABLET 1000 MG PO (09:43)
[2020-06-08] MEDS: CHOLECALCIFEROL 1,000 UNIT TABLET 1000 UNITS PO (09:43)
[2020-06-08] MEDS: NICOTINE (*PBKC) 21 MG PATCH 1 PATCH TRANSDERM (09:44)
[2020-06-08] MEDS: TAMSULOSIN HCL 0.4 MG CAPSULE PO (09:44)
[2020-06-08] MEDS: lisinopriL 20 MG TABLET PO (09:44)
--- NOTE | 2020-06-08 13:06 | PC.NURSE ---
This patient, Deniz Waggoner, was received from IMU on 06/08/20 at 1306. Personal belongings list checked and signed. Patient/family oriented to unit policies and routines
--- NOTE | 2020-06-08 13:13 | PC.NURSE ---
This patient, Deniz Waggoner, was transferred to [[id number] ] on 06/08/20 at 1313. Personal belongings sent with patient. Belongings list checked and signed with receiving [ ]. Report given to [DIONI Gallegos ]. Appropriate documentation sent with patient.
--- NOTE | 2020-06-08 17:08 | PM.IMPN ---
Progress Note: A&P Assessment and Plan (1) BPH (benign prostatic hyperplasia): Code(s): N40.0 - Benign prostatic hyperplasia without lower urinary tract symptoms Status: Acute Assessment and Plan: SEen by urology flomax ordered (2) Gross hematuria: Code(s): R31.0 - Gross hematuria Status: Acute Assessment and Plan: Pt had clots with Hematuria today. watch cbc litzy, hopeful discharge litzy (3) Acute dehydration: Code(s): E86.0 - Dehydration Status: Resolved Assessment and Plan: off fluids (4) Acidosis, lactic: Code(s): E87.2 - Acidosis Status: Acute Assessment and Plan: Pt to have iv fluids and iv rocephin both stopped uc is negative lactic level is nl (5) Septic shock: Code(s): A41.9 - Sepsis, unspecified organism; R65.21 - Severe sepsis with septic shock Status: Resolved (6) COPD (chronic obstructive pulmonary disease): Code(s): J44.9 - Chronic obstructive pulmonary disease, unspecified Status: Acute Assessment and Plan: Breathing treatment and nicotine patch (7) Alcoholism: Code(s): F10.20 - Alcohol dependence, uncomplicated Status: Acute Assessment and Plan: CIWA, librium oral scheduled, ativan IV prn Subjective Date/time seen: 06/08/20 17:08 Interval history: Edilson is a 60 year old male admitted with hematuria for 10 days ? uti? prostate issues. Pt is known to have COPD, and is an chronic alcoholic and has a history of HTN also. Unfortunately pt had a episode of hematuria so we will watch him today. Review of Systems Review of Systems: ROS unobtainable: Yes other (episode of hematuria ) Exam Const: General: cooperative and healthy appearing; No in distress Nutritional Appearance: overweight Orientation/consciousness: oriented to person HENMT: Head: normal to inspection Resp: Effort & Inspection: no respiratory distress Auscultation: no rhonchi and no wheezes Cardio: Rate: regular rate Rhythm: regular rhythm GI: Inspection: normal to inspection GI Palp: No abdominal tenderness, No Guarding due to palpation present (GI) and No Hepatomegaly present Auscultation: normal bowel sounds Neuro: General: oriented to person Objective Data Vital Signs Vital Signs: Vital Signs - 24 hr 06/07/20 18:00 06/07/20 20:00 06/07/20 20:54 Temperature 36.4 C Pulse Rate 98 81 92 Respiratory Rate 20 18 Blood Pressure 172/103 H Pulse Oximetry 98 06/07/20 20:56 06/07/20 21:05 06/07/20 22:00 Temperature Pulse Rate 97 83 Respiratory Rate 18 Blood Pressure Pulse Oximetry 94 06/07/20 23:35 06/08/20 00:00 06/08/20 02:00 Temperature 36.2 C L Pulse Rate 83 76 76 Respiratory Rate 16 Blood Pressure 180/105 H Pulse Oximetry 98 06/08/20 02:12 06/08/20 02:28 06/08/20 02:36 Temperature Pulse Rate 59 L 61 Respiratory Rate 18 18 Blood Pressure 151/92 H Pulse Oximetry 06/08/20 04:00 06/08/20 04:44 06/08/20 05:51 Temperature 35.9 C L Pulse Rate 79 83 77 Respiratory Rate 18 Blood Pressure 147/98 H Pulse Oximetry 97 06/08/20 07:55 06/08/20 08:00 06/08/20 09:08 Temperature 35.9 C L Pulse Rate 88 83 84 Respiratory Rate 12 18 Blood Pressure 146/107 H 146/107 H Pulse Oximetry 94 97 06/08/20 09:14 06/08/20 09:31 06/08/20 10:29 Temperature Pulse Rate 87 Respiratory Rate 18 Blood Pressure Pulse Oximetry 87 L 94 06/08/20 12:00 06/08/20 14:02 06/08/20 14:13 Temperature 36.4 C L Pulse Rate 101 H 98 94 Respiratory Rate 12 18 18 Blood Pressure 146/105 H Pulse Oximetry 95 06/08/20 14:25 Temperature 36.4 C L Pulse Rate 102 H Respiratory Rate 19 Blood Pressure 128/85 Pulse Oximetry 97 Intake/Output Intake/Output: Intake & Output 06/05/20 06/06/20 06/07/20 06/08/20 23:59 23:59 23:59 23:59 Intake Total 2050 2903.2 2340 Output Total 600 4400 1150 Balance 1450 -1496.8 1190
[2020-06-09] VITALS (8 sets, daily range): BP systolic 152–179; BP diastolic 99–110; PULSE 82–100; RESP 18–20; TEMP 36.3–36.7; O2SAT 94–99
[2020-06-09] MEDS: SODIUM CHLORIDE 0.9% IV 1,000 ML 100 ML IV CONT (00:18)
[2020-06-09] MEDS: LABETALOL HCL INJ 100 MG/20 ML VIAL 10 MG IV PUSH (00:41)
[2020-06-09] MEDS: LEVALBUTEROL NEB 1.25 MG/3 ML 0.63 MG INHALATION ×2 (03:28→08:27)
[2020-06-09] MEDS: chlordiazePOXIDE 10 MG CAPSULE PO (05:08)
[2020-06-09 05:33] LABS: Hematocrit 31.6 % (42.0-52.0); Hemoglobin 9.9 g/dL (14.0-18.0); Mean Corpuscular HGB Conc 31.3 g/dl (32-36); Mean Corpuscular Hemoglobin 28.1 pg (26-34); Mean Corpuscular Volume 89.8 fl (80-100); Mean Platelet Volume 9.3 fl (7.4-10.4); Platelet Count Result 314 k/mm3 (150-375); Red Blood Count 3.52 M/mm3 (4.6-6.20); Red Cell Distribution Width 18.1 % (11.5-14.5); White Blood Count 7.4 K/mm3 (4.5-10.0)
[2020-06-09] MEDS: NICOTINE (*PBKC) 21 MG PATCH 1 PATCH TRANSDERM (08:20)
[2020-06-09] MEDS: TAMSULOSIN HCL 0.4 MG CAPSULE PO (08:21)
[2020-06-09] MEDS: THIAMINE HCL 100 MG TABLET PO (08:21)
[2020-06-09] MEDS: lisinopriL 20 MG TABLET PO (08:21)
--- NOTE | 2020-06-09 12:18 | PM.DS ---
DS: Admitting Diagnosis Admitting Diagnosis Admitting Diagnosis: Septic shock, dehydration DS: Discharge Diagnosis Discharge Diagnosis (1) BPH (benign prostatic hyperplasia): Code(s): N40.0 - Benign prostatic hyperplasia without lower urinary tract symptoms Status: Acute Assessment and Plan: Seen by urology flomax ordered, ptto follow up with them in clinic, psa is 0.7. hematuria has settled prior to discharge, uc was negative so pt was discharged home with out any further abx. (2) Gross hematuria: Code(s): R31.0 - Gross hematuria Status: Acute Assessment and Plan: Pt admitted with clots with Hematuria, hb is stable at 9. pt to stable for dc (3) Acute dehydration: Code(s): E86.0 - Dehydration Status: Resolved Assessment and Plan: pt has been on fluids, fluid hydration has put up his bps while in the hospital (4) Acidosis, lactic: Code(s): E87.2 - Acidosis Status: Acute Assessment and Plan: iv rocephin stopped uc is negative lactic level is nl (5) Septic shock: Code(s): A41.9 - Sepsis, unspecified organism; R65.21 - Severe sepsis with septic shock Status: Resolved Assessment and Plan: on iv fluids and iv rocephin cultures are urine clear on dischrage (6) COPD (chronic obstructive pulmonary disease): Code(s): J44.9 - Chronic obstructive pulmonary disease, unspecified Status: Acute Assessment and Plan: Breathing treatment and nicotine patch (7) Alcoholism: Code(s): F10.20 - Alcohol dependence, uncomplicated Status: Acute Assessment and Plan: CIWA, librium oral scheduled, ativan IV prn while in hospital strongly adviced to quit drinking alcholol. librium #15 prior to dischrage to help him to stay off the alcholol. help line given. pt also adviced to quit smoking. DS: Summary Time Spent with Patient Time attestation: Total time spent providing and/or coordinating discharge services:40 minutes on day of dischrage Exam Const: General: cooperative Nutritional Appearance: well nourished and overweight Orientation/consciousness: oriented to person HENMT: Head: normal to inspection and normocephalic Eyes: General: appearance normal, both eyes and all related structures Chest: Chest palpation & inspection: normal inspection of the chest Resp: Effort & Inspection: normal respiratory effort and no respiratory distress Auscultation: clear to auscultation bilaterally, no rhonchi and no wheezes Cardio: Rate: regular rate Rhythm: regular rhythm Heart sounds: S1 normal heart sound present and S2 normal heart sound present GI: Inspection: normal to inspection Auscultation: normal bowel sounds Skin: General skin exam: normal color and dry skin Neuro: General: oriented to person Cranial nerves: Yes CN's II-XII intact bilaterally and Yes Equal, round and reactive pupils present Cognition (Neuro): normal cognition Speech: normal speech Motor exam (neuro): 5/5 motor strength present throughout Extrem: General: normal to inspection Psych: Appearance: other (anxiety ) DS: Data Data Completed and Pending Labs on day of discharge: Labs from last 24 hours 06/09/20 05:16 WBC 7.4 RBC 3.52 L Hgb 9.9 L Hct 31.6 L MCV 89.8 MCH 28.1 MCHC 31.3 L RDW 18.1 H Plt Count 314 MPV 9.3 Preliminary micro results at discharge 06/06/20 17:13 Blood Culture - Preliminary Blood 06/06/20 17:13 Blood Culture - Preliminary Blood Discharge Plan Discharge Attending physician on discharge: Nadia Levy Consulting providers: Tho Mcgovern Discharging Clinician: Nadia Levy Anticipated Discharge Date/Time: 06/09/20 12:14 Patient Disposition: Home, Self-Care Activity: as tolerated Diet: heart healthy Discharge Instructions: Urology Instructions: Continue Flomax, call office to schedule a cystoscopy with Dr. Mcgovern. adviced to
== END 2020-06-09 13:09 | disposition home or self-care (01) ==
LOC: ANHED 18:34 → ANHIMU 22:24 → ANH2MED 06-09 12:18 → ANHIMU 06-12 15:51
PROVIDERS: Internal Medicine; Admitting Provider Internal Medicine; Emergency Provider Emergency Medicine; PCP Family Medicine; Visit Provider Family Medicine
DX: A41.9 Sepsis, unspecified organism (principal); R65.21 Severe sepsis with septic shock; E86.0 Dehydration; R31.0 Gross hematuria; F10.20 Alcohol dependence, uncomplicated; I10 Essential (primary) hypertension; J44.9 Chronic obstructive pulmonary disease, unspecified; F17.210 Nicotine dependence, cigarettes, uncomplicated; Y90.8 Blood alcohol level of 240 mg/100 ml or more; N40.0 Benign prostatic hyperplasia without lower urinary tract symptoms; E87.2 Acidosis
CPT/HCPCS: 36415; 36600; 51701; 70450; 71045; 74177; 80048; 80053; 80307; 81001; 82140; 82550; 82805; 83605; 83690; 83735; 84100; 84484; 85025; 85027; 85610; 85730; 87040; 87086; 93005; 94640; 96360; 96361; 96365; 96366; 96367; 96368; 96374; 96375; 99291; A9270; G0378; G0379; J0696; J2060; J3411; J3475; J7030; J7042; Q9967

== ENCOUNTER 2020-10-17 13:03 | Inpatient (IN) | payer OTHER, SELFPAY ==
[2020-10-17] VITALS (24 sets, daily range): BP systolic 93–147; BP diastolic 62–93; PULSE 95–130; RESP 14–32; TEMP 35.9–37; O2SAT 91–100; BMI 21.5
--- NOTE | ~2020-10-17 | US_ITS ---
EXAMINATION: US right upper quadrant DATE: 10/18/2020 09:38 INDICATION: Abnormal liver function tests. TECHNIQUE: Multiple grayscale and Doppler ultrasound images of the abdomen were obtained. COMPARISON: CT abdomen and pelvis 06/06/2020 FINDINGS: The visualized portions of the head, body, and tail of the pancreas are normal. The liver i s normal without focal lesion. No liver surface nodularity. There is normal flow in main portal vein. The gallbladder is contracted. No gallstones or sonographic Beckman sign. The common duct is normal a nd measures 2 mm. Right kidney is normal. IMPRESSION: 1. No etiology for abnormal liver function tests. Reviewed, dictated and finalized at location A. UCT MANAGER
--- NOTE | ~2020-10-17 | CT_ITS ---
EXAMINATION: CT abdomen pelvis wo con EXAM DATE: 10/19/2020 13:40 INDICATION: Hematuria. TECHNIQUE: Spiral CT of the abdomen and pelvis was performed without contrast. Axial, coronal and sag ittal images were reviewed. The dose-length product (DLP) for this examination was 285.44 mGy-cm. T he exposure was tailored according to patient size (auto mA exposure control), and iterative reconstr uction (ASIR) was used as additional dose reduction technique. Comparison is made to prior examinatio n from 06/06/2020. FINDINGS: There is no nephrolithiasis or hydronephrosis. Mild nonspecific bilateral perinephric fat s tranding. The prostate is unremarkable. The bladder is undistended. There is moderate diffuse bladder wall thickening could indicate acute or chronic cystitis. There is a right posterolateral bladder di verticulum, lateral to the UVJ. The liver, spleen, adrenal glands and pancreas are unremarkable. The gallbladder is contracted but otherwise unremarkable. There is no retroperitoneal or pelvic lymphad enopathy. There is mild scattered arteriosclerotic disease. The appendix is normal. The stomach and small bowel are unremarkable. There is expected amount of c olonic stool. No free intraperitoneal gas. Trace bilateral pleural effusions. The lung bases are unremarkable. There are no osteoblastic or osteolytic lesions identified. There is an old left 11th rib fracture. IMPRESSION: 1. Diffuse bladder wall thickening. Could be acute and/or chronic cystitis. Small bladder diverticul um. 2. Mild nonspecific bilateral perinephric fat stranding. 3. Trace pleural effusions. Reviewed, dictated and finalized at location A. CHING MACHINE SETTER IMPRESSION: 1. Diffuse bladder wall thickening. Could be acute and/or chronic cystitis. Sm all bladder diverticulum. 2. Mild nonspecific bilateral perinephric fat stranding. 3. Trace pleural effusions.
--- NOTE | ~2020-10-17 | XR_ITS ---
EXAMINATION: XR chest 2V 10/18/2020 16:31 INDICATION: Cough with shortness of breath. Hypertension. PROCEDURE: AP and lateral views of the chest COMPARISON: 06/06/2020 FINDINGS: There is bibasilar atelectasis/scarring. The lungs are hyperinflated which is consistent wi th, but not diagnostic of chronic obstructive pulmonary disease. The cardiomediastinal silhouette is within normal limits. There are no pleural effusions. There is no pneumothorax suspected. There a re multiple healed right rib fractures with callus formation. IMPRESSION: 1: Bibasilar atelectasis/scarring. Reviewed, dictated and finalized at location A. OM DECORATING CONSULTANT
--- NOTE | 2020-10-17 13:09 | ECG_ITS ---
Measurements Intervals [place] Rate: 130 P: 71 ID: 124 QRS: 65 QRSD: 71 T: 44 QT: 290 QTc: 427 Interpretive Statements SINUS TACHYCARDIA MINIMAL Q WAVES- INF/LAT LEADS BASELINE ARTIFACT- I, II, AVR, AVL, AVF ABNORMAL ECG Electronically Signed On 10-17-2020 14:42:37 PROPERTY MANAGEMENT INTERN by Jareth Lee D.O.
--- NOTE | 2020-10-17 13:09 | PC.NURSE ---
Per [facility] EDP Dr Amador hansen to give Zofran 4MG IVP and initiate NS due to pt N/V on arrival.
[2020-10-17] MEDS: ONDANSETRON INJ 4 MG/2 ML VIAL (13:10)
[2020-10-17] MEDS: SODIUM CHLORIDE 0.9% IV 1,000 ML 999 ML (13:10)
[2020-10-17 13:29] LABS: Basophils Percent Auto 0.2 % (0.2-1.2); Immature Granulocyte Absolute 0.21 K/mm3 (0.00-0.031); Immature Granulocyte Percent A 1.3 % (0-0.5); Lymphocytes Absolute Auto 0.56 K/mm3 (0.9-3.2); Lymphocytes Percent Auto 3.6 % (18.3-44.2); Mean Corpuscular HGB Conc 31.9 g/dl (32-36); Mean Corpuscular Hemoglobin 26.3 pg (26-34); Mean Corpuscular Volume 82.6 fl (80-100); Mean Platelet Volume 9.7 fl (7.4-10.4); Monocytes Absolute Auto 1.1 K/mm3 (0.1-0.6); Monocytes Percent Auto 7.2 % (2.6-8.5); Neutrophils Absolute Auto 13.8 K/mm3 (1.3-6.7); Neutrophils Percent Auto 87.7 % (45.5-73.1); Nucleated Red Blood Cells Perc 0.1 % (0.0-0.2); Platelet Count Result 176 k/mm3 (150-375); Red Blood Count 2.47 M/mm3 (4.6-6.20); Red Cell Distribution Width 19.7 % (11.5-14.5); White Blood Count 15.7 K/mm3 (4.5-10.0)
--- NOTE | 2020-10-17 13:32 | ED.GENADULT ---
HPI - General Adult General Chief complaint: GI Bleed Stated complaint: weak Time Seen by Provider: 10/17/20 13:04 Source: patient History of Present Illness HPI narrative: Patient is a 60 y/o male complaining of vomiting and diarrhea since yesterday. He states that he vomited 5-10 times since onset. There is no known alleviating or exacerbating factor. He states that he vomits up blood sometimes. He also has some diarrhea with dark stool. He admits he has been drinking and his last drink was yesterday. He also feels weak and almost passed out. However, he denies actually passing out. He also feels shaky. Related Data Home Medications Medication Instructions Recorded Confirmed lisinopril 20 mg PO DAILY 12/23/19 06/06/20 vitamin B complex [B-Complex] 1 tablet PO DAILY 12/23/19 06/06/20 Allergies Allergy/AdvReac Type Severity Reaction Status Date / Time morphine Allergy Unknown Flushing Verified 10/17/20 13:11 Review of Systems Constitutional: Constitutional: Denies chills, Denies fever(s), Denies headache(s) and Reports weakness Eyes: Eyes: Denies blurry vision ENT: Denies headache(s) and Denies neck pain Cardiovascular: Cardiovascular: Denies chest pain and Denies dyspnea Respiratory: Respiratory: Denies cough and Denies dyspnea Gastrointestinal: Gastrointestinal: Denies abdominal pain, Reports melena, Reports diarrhea, Reports nausea and Reports vomiting Genitourinary: Genitourinary: Denies hematuria and Denies dysuria Musculoskeletal: Musculoskeletal: Denies back pain and Denies neck pain Neurologic: Denies headache(s), Reports tremor(s) and Denies weakness PMFSH Past Medical History Medical History (Updated 10/17/20 @ 16:51 by Marivel English MD) Alcoholism Community acquired pneumonia COPD (chronic obstructive pulmonary disease) Diverticulosis Duodenal ulcer Gastritis GI bleed Hypertension Schatzki's ring Surgical History Surgical History History of colonoscopy History of esophagogastroduodenoscopy (EGD) Family History Family History Grandparent Family history of lymphoma Family history of heart disease in male family member before age 55 Social History Social History Smoking packs per day: 1.5 Smoking cigarettes per day: 30.0 Years smoked: 40 Smoking pack-years: 60.00 Smoking status: Current every day smoker Tobacco type: cigarettes Second hand tobacco smoke exposure: Yes Alcohol intake: current Drinks per week: 20 Substance use: never Substance use type: does not use Other substance usage details: drinks a pint of gin a day Gender identity (if verbalized by the patient): Male Spiritual care concerns: No Agree to blood products: Yes Exam Const: General: no acute distress and ill appearing Orientation/consciousness: oriented to person, oriented to place, oriented to time and patient oriented x3 HENMT: Head: normocephalic Ears: external ears normal General nose exam: Normal external nose present Eyes: General: appearance normal, both eyes and all related structures Conjunctivae: conjunctivae normal Neck: Neck: normal visual inspection and full ROM Chest: Chest palpation & inspection: normal inspection of the chest and no tenderness Resp: Effort & Inspection: normal respiratory effort Auscultation: clear to auscultation bilaterally Cardio: Rate: tachycardic Rhythm: regular rhythm GI: GI Palp: No abdominal tenderness and Yes Soft to palpation Skin: General skin exam: normal color and turgor normal Neuro: General: oriented to person, oriented to place, oriented to time and patient oriented x3 Cognition (Neuro): normal cognition Motor exam (neuro): Tremors during motor activity present Extrem: General: normal to inspection, full ROM and no pedal edema Psych: Appearance: grossly normal
--- NOTE | 2020-10-17 13:43 | PC.NURSE ---
PT 88% ON RA, 2L O2 PLACED VIA NC, ERP AMOS INFORMED.
[2020-10-17 13:46] LABS: Alanine Aminotransferase 49 U/L (4-50); Albumin Level 3.2 g/dL (3.5-5.1); Alkaline Phosphatase 62 U/L (38-126); Anion Gap 13 mmol/L (8-16); Aspartate Amino Transferase 78 U/L (17-59); Bilirubin,Total 0.7 mg/dL (0.2-1.3); Blood Urea Nitrogen 51 mg/dL (9-20); Calcium 9.2 mg/dL (8.4-10.2); Carbon Dioxide 32 mmol/L (22-30); Chloride 84 mmol/L (98-107); Estimated CRCL calculation 94 ml/min; Estimated Glomerular Filt Rate > 60; Glucose 151 mg/dL (75-110); Lipase 53 U/L (23-300); Sodium 129 mmol/L (137-145)
[2020-10-17 13:47] LABS: Prothrombin Time 13.8 Seconds (11.1-14.7)
[2020-10-17 13:48] LABS: Partial Thromboplastin Time 28.3 SECONDS (22.3-36.8)
[2020-10-17] MEDS: chlordiazePOXIDE (*CRX) 25 MG CAPSULE PO (13:54)
[2020-10-17] MEDS: SODIUM CHLORIDE 0.9% IV 1,000 ML 999 ML IV CONT (13:54)
--- NOTE | 2020-10-17 13:57 | PC.NURSE ---
VERBAL ORDER TO HOLD STAT ZOFRAN ORDER FOR PT.
[2020-10-17 13:59] LABS: Hematocrit 20.4 % (42.0-52.0); Hemoglobin 6.5 g/dL (14.0-18.0)
[2020-10-17] MEDS: PANTOPRAZOLE SODIUM IV 40 MG VIAL IV PUSH ×2 (14:00→20:14)
[2020-10-17] MEDS: SODIUM CHLORIDE 0.9% IV 250 ML 30 ML IV CONT (15:59)
[2020-10-17] MEDS: TUBING, BLOOD PLUM PUMP TUBING 1 EACH XX (16:00)
--- NOTE | 2020-10-17 16:29 | ADMGEN ---
This patient, Deniz Waggoner, was admitted to Medical Room 243-. Patient/family oriented to hospital policies and general routines including ID bracelet, bed and alarms, visiting hours, pain management, procedures, bathroom and other care routines, personal items, smoking policy, room service/diet, and visiting hours. Information on how to activate the Rapid Response Team has been discussed. Patient/Family are encouraged to report perceived risks to care and to ask questions if they do not understand what they are told or what they should do.
--- NOTE | 2020-10-17 17:20 | WPDGICN ---
Assessment and Plan Assessment and plan (1) GI bleed: Qualifiers: GI bleed type/associated pathology: unspecified gastrointestinal hemorrhage type Qualified Code(s): K92.2 - Gastrointestinal hemorrhage, unspecified Code(s): K92.2 - Gastrointestinal hemorrhage, unspecified Status: Acute Assessment and Plan: admitted to floor continue with iv protonix, also will need EGD (assess if ulcers- using nsaid's, esophagitis, MWT, etc, varices since use of alcohol) (2) Acute blood loss anemia: Code(s): D62 - Acute posthemorrhagic anemia Status: Acute Assessment and Plan: getting blood transfusion continue to monitor h/h (3) Melena: Code(s): K92.1 - Melena Status: Acute Assessment and Plan: upper gib, supportive care egd (4) Alcohol withdrawal: Qualifiers: Complication of substance-induced condition: with unspecified complication Qualified Code(s): F10.239 - Alcohol dependence with withdrawal, unspecified Code(s): F10.239 - Alcohol dependence with withdrawal, unspecified Status: Acute Assessment and Plan: ciwa protocol, heavy drinker thiamine, mvi (5) Hypertension: Code(s): I10 - Essential (primary) hypertension Status: Acute (6) Elevated liver enzymes: Code(s): R74.8 - Abnormal levels of other serum enzymes Status: Acute Assessment and Plan: from alcohol abuse he is planning to go to rehab soon get hepatitis panel GI Consult Note Consult date/time: 10/17/20 17:20 Reason for consult: gib, melena, pre-syncope HPI: Deniz Waggoner is a 60 year old male with history of COPD, smoker, HTN and alcoholic (1 pint of gin a day) for last several months, he has been in rehab in the past. Last hospitalization for UTI on 05/2020. Also remote history of gastric ulcer but he is not using PPI, he says that is taking ibuprofen every other day. He came here with new onsent of several episodes of nausea with emesis, noted coffee ground and yesterday had dark tarry stool with diarrhea. Also feeling weak and like passing out. Hb on arrival 6.5 (10's in the past), BUN 50's, normal inr and platelets. AST 78. Started on iv protonix, admitted to hospital and now getting blood transfusion. He says that had EGD years ago when had ulcer, also colonoscopy about 8-10 years ago unknown details. Review of Systems Constitutional: Constitutional: Reports fatigue and Reports lethargy Eyes: Eyes: Reports no additional eye complaints ENT: Reports Normal hearing present Cardiovascular: Cardiovascular: Reports lightheadedness Respiratory: Respiratory: Denies cough Gastrointestinal: Gastrointestinal: Reports melena, Reports nausea, Reports vomiting and Reports hematemesis Genitourinary: Genitourinary: Denies dysuria Musculoskeletal: Musculoskeletal: Denies myalgias Integumentary/Breasts: Skin/Breast: Denies dry skin Neurologic: Denies numbness Psychiatric: Psychiatric: Reports anxiety [facility] Past Medical History Medical History (Updated 10/17/20 @ 17:27 by Yannick Mancuso MD) Alcoholism Community acquired pneumonia COPD (chronic obstructive pulmonary disease) Diverticulosis Duodenal ulcer Elevated liver enzymes Gastritis GI bleed Hypertension Melena Schatzki's ring Surgical History Surgical History History of colonoscopy History of esophagogastroduodenoscopy (EGD) Family History Family History Grandparent Family history of lymphoma Family history of heart disease in male family member before age 55 Social History Social History Smoking packs per day: 1.5 Smoking cigarettes per day: 30.0 Years smoked: 40 Smoking pack-years: 60.00 Smoking status: Current every day smoker Tobacco type: cigarettes Second hand tobacco smoke exp
[2020-10-17] MEDS: THIAMINE HCL 200 MG/2 ML VIAL IV PUSH (18:44)
[2020-10-17] MEDS: ALBUTEROL SULFATE NEB 2.5 MG/0.5 ML INH INHALATION (21:04)
--- NOTE | 2020-10-17 22:48 | PM.IMHP ---
H&P: HPI History of Present Illness Date/Time: 10/17/20 22:48 Chief Complaint: Hematemesis Narrative: Deniz Waggoner is a 60 year old male of vomiting blood and diarrhea that is dark since yesterday. The patient stated he vomited 5-10 times since onset. The patient does drink half a pt of gin every day. The last me drink was yesterday. He feels very weak and almost passed out. The patient does have COPD and has been coughing. He feels very shaky. The patient stated he wants to quit drinking alcohol but wants to wait until after the of the year. Was May of this year. We had some hematuria and his hemoglobin was stable around 9 at that time. H&H was 6.5 and 20.4 today. Patient had been transfused with blood and GI has been consulted. The plan is for EGD tomorrow. The patient has had an EGD and colonoscopy me in the past. He denies having any esophageal varices or any colon polyps or hemorrhoids. Patient's AST is elevated to 78. IV fluids, and Protonix IV. Patient was wheezing and coughing so we did give him a neb treatment. And that seemed to help somewhat. Admitted to observation on the date of service of 10/17/2020. Review of Systems Review of Systems: All systems reviewed & are unremarkable except as noted in HPI and below Constitutional: Constitutional: Reports as per HPI and Reports no additional constitutional complaints Eyes: Eyes: Reports as per HPI and Reports no additional eye complaints ENT: Reports system reviewed and no additional complaints, except as documented and Reports Normal hearing present Cardiovascular: Cardiovascular: Reports no additional cardiovascular complaints Respiratory: Respiratory: Reports no additional respiratory complaints and Reports no additional respiratory complaints Gastrointestinal: Gastrointestinal: Reports as per HPI and Reports no additional gastrointestinal complaints Musculoskeletal: Musculoskeletal: Reports no additional musculoskeletal complaints Integumentary/Breasts: Skin/Breast: Reports system reviewed and no additional complaints, except as docu and Reports as per HPI Neurologic: Reports system reviewed and no additional complaints, except as documented, Reports as per HPI and Reports Normal hearing present Psychiatric: Psychiatric: Reports no additional psychiatric complaints and Reports as per HPI Endocrine: Endocrine: Reports no additional endocrine complaints Hematologic/Lymphatic: Hematologic/Lymphatic: Reports no additional hematologic/lymphatic complaints Allergic/Immunologic: Allergic/Immunologic: Reports no additional allergic/immunologic complaints [facility] Past Medical History Medical History Alcoholism Community acquired pneumonia COPD (chronic obstructive pulmonary disease) Diverticulosis Duodenal ulcer Elevated liver enzymes Gastritis GI bleed Hypertension Melena Schatzki's ring Surgical History Surgical History History of colonoscopy History of esophagogastroduodenoscopy (EGD) Family History Family History (Updated 10/17/20 @ 22:54 by Suni Villagomez NP) Grandparent Family history of lymphoma Family history of heart disease in male family member before age 55 Father Lung fibrosis Mother Emphysema of lung Social History Social History (Updated 10/17/20 @ 22:56 by Suni Villagomez NP) Social History: The patient stated that he lives with his and 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 He typically drinks a half a pt of gin a day. He has not drink since yesterday. the patient smokes about half a pt of gin a day. He smokes a pack and half cigarettes a day. No marijuana or illicit drugs. He has 2 children. He desires to be a full code. Smoking packs per day: 1.5 Smoking cigarettes per
[2020-10-17 23:26] LABS: Hematocrit 21.4 % (42.0-52.0)
[2020-10-18] VITALS (28 sets, daily range): BP systolic 123–156; BP diastolic 78–109; PULSE 12–135; RESP 16–27; TEMP 36.2–36.8; O2SAT 91–100; BMI 21.5
[2020-10-18] MEDS: SODIUM CHLORIDE 0.9% IV 500 ML 30 ML (01:49)
[2020-10-18] MEDS: chlordiazePOXIDE (*CRX) 25 MG CAPSULE PO ×3 (05:38→22:01)
[2020-10-18 06:29] LABS: Potassium 3.6 mmol/L (3.4-5.0)
[2020-10-18 06:36] LABS: Alanine Aminotransferase 43 U/L (4-50); Alkaline Phosphatase 68 U/L (38-126); Anion Gap 4 mmol/L (8-16); Aspartate Amino Transferase 62 U/L (17-59); Blood Urea Nitrogen 36 mg/dL (9-20); Calcium 8.3 mg/dL (8.4-10.2); Carbon Dioxide 36 mmol/L (22-30); Chloride 92 mmol/L (98-107); Estimated CRCL calculation 109 ml/min; Estimated Glomerular Filt Rate > 60; Glucose 97 mg/dL (75-110); Magnesium 1.6 mg/dL (1.6-2.3); Sodium 132 mmol/L (137-145)
[2020-10-18 06:37] LABS: Lactic Acid Reflex 0.6 mmol/L (0.7-2.1)
[2020-10-18 07:26] LABS: Hematocrit 23.2 % (42.0-52.0); Hemoglobin 7.5 g/dL (14.0-18.0)
[2020-10-18 07:37] LABS: Hepatitis B Surface Antigen Negative (Negative)
[2020-10-18 07:43] LABS: HAV RESULT Negative (Negative); Hepatitis B Core IgM Result Negative (Negative)
[2020-10-18 07:54] LABS: Hepatitis C Virus Antibody Negative (Negative)
[2020-10-18] MEDS: ALBUTEROL SULFATE NEB 2.5 MG/0.5 ML INH INHALATION ×3 (07:55→15:54)
[2020-10-18] MEDS: SERTRALINE HCL 50 MG TABLET PO (08:34)
[2020-10-18] MEDS: VITAMIN B COMPLEX CAPSULE 1 CAP PO (08:34)
[2020-10-18] MEDS: METOPROLOL SUCCINATE EXT REL 25 MG TABCR PO (08:34)
[2020-10-18] MEDS: THIAMINE HCL 200 MG/2 ML VIAL IV PUSH (08:34)
[2020-10-18] MEDS: PANTOPRAZOLE SODIUM IV 40 MG VIAL IV PUSH ×2 (08:34→22:01)
[2020-10-18] MEDS: TAMSULOSIN HCL 0.4 MG CAPSULE PO (08:34)
[2020-10-18] MEDS: lisinopriL 20 MG TABLET 40 MG PO (08:34)
[2020-10-18] MEDS: ASCORBIC ACID 500 MG TABLET 1000 MG PO (08:34)
[2020-10-18] MEDS: FOLIC ACID 1 MG/0.2 ML INJ IV PUSH (08:37)
[2020-10-18] MEDS: THIAMINE HCL 200 MG/2 ML VIAL 100 MG IV PUSH (08:39)
[2020-10-18] MEDS: NICOTINE (*PBKC) 21 MG PATCH 1 PATCH TRANSDERM (08:43)
[2020-10-18] MEDS: SODIUM CHLORIDE 0.9% IV 250 ML 30 ML IV CONT (10:00)
[2020-10-18] MEDS: LACTATED RINGERS 1,000 ML 150 ML IV CONT (11:40)
--- NOTE | 2020-10-18 12:02 | WPDANESEPPF ---
Anes - Initial Pre Proc Eval Procedure: Operation Date: 10/18/20 12:30 Proposed Procedures p Esophagogastroduodenoscopy - Yannick Mancuso MD Date/Time: 10/18/20 12:02 Surgeon: Jorge Luis Hernandez MD Pre Op Diagnosis: acute blood loss/anemia Patient Data Age: 60 Gender: M Height: 5 ft 10 in Weight: 68.1 kg Last Vital Signs Temp 98.2 F 10/18/20 11:37 Pulse 135 H 10/18/20 11:37 Resp 24 H 10/18/20 11:37 BP 124/87 10/18/20 11:37 Pulse Ox 95 10/18/20 11:37 Allergies Allergy/AdvReac Type Severity Reaction Status Date / Time morphine Allergy Unknown Flushing Verified 10/18/20 11:36 Home Medications Medication Instructions Recorded Confirmed Type vitamin B complex [B-Complex] 1 tablet PO DAILY 12/23/19 10/17/20 History ascorbic acid (vitamin C) 1 g PO DAILY #30 tablet 06/09/20 10/17/20 Rx cholecalciferol (vitamin D3) 1,250 mcg PO DAILY #30 cap 06/09/20 10/17/20 Rx [D3-50 Cholecalciferol] thiamine HCl (vitamin B1) [Vitamin 100 mg PO QAM #30 tablet 06/09/20 10/17/20 Rx B-1] albuterol sulfate 2.5 mg INHALATION QID 10/17/20 10/17/20 History chlordiazepoxide HCl 10 mg PO Q8HR PRN 10/17/20 10/17/20 History lisinopril 40 mg PO DAILY 10/17/20 10/17/20 History metoprolol succinate 25 mg PO DAILY 10/17/20 10/17/20 History omeprazole 20 mg PO DAILY 10/17/20 10/17/20 History sertraline 50 mg PO DAILY 10/17/20 10/17/20 History tamsulosin 0.4 mg PO DAILY 10/17/20 10/17/20 History Laboratory Tests 10/17/20 10/17/20 10/17/20 13:18 13:18 13:18 WBC 15.7 K/mm3 H K/mm3 (4.5-10.0) RBC 2.47 M/mm3 L M/mm3 (4.6-6.20) Hgb 6.5 g/dL L* D g/dL (14.0-18.0) Hct 20.4 % L* % (42.0-52.0) MCV 82.6 fl fl (80-100) MCH 26.3 pg pg (26-34) MCHC 31.9 g/dl L g/dl (32-36) RDW 19.7 % H % (11.5-14.5) Plt Count 176 k/mm3 k/mm3 (150-375) MPV 9.7 fl fl (7.4-10.4) Immature Gran % (Auto) 1.3 % H % (0-0.5) Neut % (Auto) 87.7 % H % (45.5-73.1) Lymph % (Auto) 3.6 % L % (18.3-44.2) [place] % (Auto) 7.2 % % (2.6-8.5) Eos % (Auto) 0.0 % % (0-4.4) Baso % (Auto) 0.2 % % (0.2-1.2) Lymph # (Auto) 0.56 K/mm3 L K/mm3 (0.9-3.2) [place] # (Auto) 1.1 K/mm3 H K/mm3 (0.1-0.6) Eos # (Auto) 0.0 K/mm3 K/mm3 (0-0.3) Baso # (Auto) 0.0 K/mm3 K/mm3 (0.0-0.1) Abs Immat Gran (auto) 0.21 K/mm3 H K/mm3 (0.00-0.031) Absolute Neuts (auto) 13.8 K/mm3 H K/mm3 (1.3-6.7) Absolute Nucleated RBC 0.0 K/mm3 K/mm3 (0.0-0.012) Nucleated RBC % 0.1 % % (0.0-0.2) PT 13.8 Seconds Seconds (11.1-14.7) INR 1.0 APTT 28.3 SECONDS SECONDS (22.3-36.8) Sodium 129 mmol/L L mmol/L (137-145) Potassium 4.0 mmol/L mmol/L (3.4-5.0) Chloride 84 mmol/L L mmol/L (98-107) Carbon Dioxide 32 mmol/L H mmol/L (22-30) Anion Gap 13 mmol/L mmol/L (8-16) BUN 51 mg/dL H D mg/dL (9-20) Creatinine 0.70 mg/dL mg/dL (0.7-1.3) Estim Creat Clear Calc 94 ml/min ml/min Estimated GFR > 60 (59 - ) Glucose 151 mg/dL H mg/dL (75-110) Lactic Acid Calcium 9.2 mg/dL mg/dL (8.4-10.2) Magnesium Total Bilirubin 0.7 mg/dL mg/dL (0.2-1.3) AST 78 U/L H U/L (17-59) ALT 49 U/L U/L (4-50) Alkaline Phosphatase 62 U/L U/L (38-126) Total Protein 6.0 g/dL L g/dL (6.3-8.2) Albumin 3.2 g/dL L g/dL (3.5-5.1) Lipase 53 U/L U/L (23-300) TSH (Reflex) Hepatitis A IgM Ab Hep Bs Antigen Hep B Core IgM Ab Hepatitis C Ab Screen Blood Type Antibody Screen Crossmatch 10/17/20 10/17/20
[2020-10-18] MEDS: BENZOCAINE (*SP) 60 ML SPRAY CAN (HURRICAINE) 1 SPRAY MUCOUS MEM (12:49)
[2020-10-18] MEDS: EPINEPHrine INJ 1 MG/10 ML SYRINGE 0.4 MG XX (13:33)
[2020-10-18 14:44] LABS: Hemoglobin 8.1 g/dL (14.0-18.0); Mean Corpuscular HGB Conc 32.4 g/dl (32-36); Mean Corpuscular Hemoglobin 27.7 pg (26-34); Mean Corpuscular Volume 85.6 fl (80-100); Mean Platelet Volume 9.3 fl (7.4-10.4); Platelet Count Result 131 k/mm3 (150-375); Red Blood Count 2.92 M/mm3 (4.6-6.20); Red Cell Distribution Width 19.9 % (11.5-14.5); White Blood Count 7.7 K/mm3 (4.5-10.0)
--- NOTE | 2020-10-18 15:29 | PM.IMPN ---
Progress Note: A&P Assessment and Plan (1) Bleeding duodenal ulcer: Code(s): K26.4 - Chronic or unspecified duodenal ulcer with hemorrhage Status: Acute Assessment and Plan: EGD showed active bleeding ulcer -the EGD it was ablated with a heated probe and 2 resolution clips were placed for hemostasis as well as injection of epinephrine -the patient has no recurrence of hematemesis -will continue Protonix b.i.d. -advance diet as tolerated -hemoglobin appears stable now 8.1. -he has received 3 units of blood total -his tachycardia has improved with hemo stability -patient understands that he needs to quit drinking alcohol (2) Acute blood loss anemia: Code(s): D62 - Acute posthemorrhagic anemia Status: Acute Assessment and Plan: Last hemoglobin 8.1 -patient received 3 units of blood -recheck H&H in the morning See above for further details (3) Alcohol withdrawal: Qualifiers: Complication of substance-induced condition: with unspecified complication Qualified Code(s): F10.239 - Alcohol dependence with withdrawal, unspecified Code(s): F10.239 - Alcohol dependence with withdrawal, unspecified Status: Acute Assessment and Plan: Patient had a tremor on exam but no hallucinations -continue CIWA -continue scheduled Librium and Ativan p.r.n. -last drink was just over 24 hours ago, monitor for worsening withdrawal -high risk for withdrawal (4) BPH (benign prostatic hyperplasia): Code(s): N40.0 - Benign prostatic hyperplasia without lower urinary tract symptoms Status: Acute Assessment and Plan: Continue with tamsulosin (5) COPD (chronic obstructive pulmonary disease): Code(s): J44.9 - Chronic obstructive pulmonary disease, unspecified Status: Acute Assessment and Plan: Continue with nebulizers -patient was placed on oxygen although the nurse does not know why and there is no hypoxia noted in the chart -will wean oxygen as tolerated -will get chest x-ray since the patient has wheezing and rhonchi although he says he feels normal -goal to keep saturations 90 or above (6) Hypertension: Code(s): I10 - Essential (primary) hypertension Status: Acute Assessment and Plan: Blood pressure 147/102 -continue lisinopril and metoprolol Time Spent With Patient Time with patient: 25 - 35 minutes Subjective Date/time seen: 10/18/20 15:30 Interval history: Pt is a 60-year-old male here for duodenal ulcer. Patient was seen today and states his stomach feels a little sore but overall doing okay. He has not tried to eat anything. He is no longer vomiting blood. He is on oxygen but states he is not usually on oxygen. He has COPD and when I asked him about his wheeziness, he says that is normal and he takes nebulizers routinely at home. He does not have any increase in cough or sputum production. He does not feel short of breath nor does he have chest pain. He states he has had withdraw from alcohol in the past. He has not had any hallucinations but does notice a slight tremor. He does not feel anxious. Review of Systems Review of Systems: All systems reviewed & are unremarkable except as noted in HPI and below Exam Narrative: Exam Narrative: General: Well developed well nourished patient in NAD HEENT: normocephalic Neck: supple Neuro: Alert and oriented x4. Slight resting tremor CV:RRR rate of 96 on exam. Telemetry showed periods of sinus tachycardia up to 130. No arrhythmias Resp: Wheeziness bilaterally with crackles. Oxygen applied Abd: Soft, non distended. Slight pain to palpation to the epigastric area. Positive bowel sounds Extremities: No swelling, erythema, or pain to palpation. Objective Data Vital Signs Vital Signs: Vital Signs - 24 hr 10/17/20 15:40 10/17/20 15:55 10/17/20 16:00 Temperature 96.6 F L 96.9 F L Pulse Rate 116 H 111 H 105 H Pulse Rate [
[2020-10-18] MEDS: SUCRALFATE 1 GM TABLET PO ×2 (16:38→22:01)
[2020-10-18] MEDS: ALBUTEROL SULFATE NEB 2.5 MG/3 ML INH INHALATION (21:12)
[2020-10-19] VITALS (19 sets, daily range): BP systolic 112–145; BP diastolic 82–96; PULSE 58–143; RESP 16–18; TEMP 36.1–37.1; O2SAT 87–100
[2020-10-19 03:54] LABS: Add Urine Microscopic? YES; Appearance Urine Cloudy (Clear); Bilirubin Urine Negative (Negative); Blood Urine 3+ (Negative); Color Urine Red (Yellow); Glucose Urine UA Negative (Negative); Ketones Urine Trace mg/dL (Negative); Leukocyte Esterase Ur Negative LEU/UL (NEGATIVE); Nitrate Urine Negative (Negative); Protein Urine 3+ mg/dL (Negative); RBC Urine >75 /hpf (0-2); Specific Grav Ur 1.018 (1.001-1.035)
[2020-10-19] MEDS: chlordiazePOXIDE (*CRX) 25 MG CAPSULE PO ×2 (05:31→20:56)
[2020-10-19] MEDS: SUCRALFATE 1 GM TABLET PO ×4 (05:31→20:52)
[2020-10-19 06:30] LABS: Hematocrit 23.1 % (42.0-52.0); Hemoglobin 7.4 g/dL (14.0-18.0)
[2020-10-19 06:36] LABS: Anion Gap 4 mmol/L (8-16); Blood Urea Nitrogen 18 mg/dL (9-20); Calcium 7.5 mg/dL (8.4-10.2); Carbon Dioxide 34 mmol/L (22-30); Chloride 91 mmol/L (98-107); Estimated CRCL calculation 128 ml/min; Estimated Glomerular Filt Rate > 60; Glucose 89 mg/dL (75-110); Potassium 3.2 mmol/L (3.4-5.0); Sodium 129 mmol/L (137-145)
[2020-10-19] MEDS: ASCORBIC ACID 500 MG TABLET 1000 MG PO (08:32)
[2020-10-19] MEDS: FOLIC ACID 1 MG/0.2 ML INJ IV PUSH (08:32)
[2020-10-19] MEDS: lisinopriL 20 MG TABLET 40 MG PO (08:32)
[2020-10-19] MEDS: TAMSULOSIN HCL 0.4 MG CAPSULE PO (08:33)
[2020-10-19] MEDS: SERTRALINE HCL 50 MG TABLET PO (08:33)
[2020-10-19] MEDS: NICOTINE (*PBKC) 21 MG PATCH 1 PATCH TRANSDERM (08:33)
[2020-10-19] MEDS: VITAMIN B COMPLEX CAPSULE 1 CAP PO (08:33)
[2020-10-19] MEDS: METOPROLOL SUCCINATE EXT REL 25 MG TABCR PO (08:34)
[2020-10-19] MEDS: PANTOPRAZOLE SODIUM IV 40 MG VIAL IV PUSH ×2 (08:34→20:52)
[2020-10-19] MEDS: THIAMINE HCL 200 MG/2 ML VIAL 100 MG IV PUSH (08:34)
--- NOTE | 2020-10-19 09:29 | ECG_ITS ---
Measurements Intervals [place] Rate: 99 P: 34 TN: 132 QRS: 68 QRSD: 81 T: 54 QT: 355 QTc: 456 Interpretive Statements SINUS RHYTHM BASELINE ARTIFACT- I, II, III, AVR, AVL, AVF NORMAL ECG Electronically Signed On 10-19-2020 13:22:30 VISUAL MERCHANDISING COORDINATOR by Jareth Lee D.O.
[2020-10-19] MEDS: ALBUTEROL SULFATE NEB 2.5 MG/3 ML INH INHALATION ×2 (09:35→14:50)
--- NOTE | 2020-10-19 10:41 | PM.IMPN ---
Progress Note: A&P Assessment and Plan (1) Bleeding duodenal ulcer: Code(s): K26.4 - Chronic or unspecified duodenal ulcer with hemorrhage Status: Acute Assessment and Plan: EGD showed active bleeding ulcer -the EGD it was ablated with a heated probe and 2 resolution clips were placed for hemostasis as well as injection of epinephrine -the patient has no recurrence of hematemesis -He had one dark BM yesterday which could be old blood but his hgb did drop again. -Will recheck hgb at noon and go from there -will continue Protonix b.i.d. -advance diet as tolerated -he has received 3 units of blood total -his tachycardia has improved with hemo stability. He was tachy earlier today which nurse says was due to coughing and bleeding tx. now he is at 96 -patient understands that he needs to quit drinking alcohol (2) Hematuria: Code(s): R31.9 - Hematuria, unspecified Status: Acute Assessment and Plan: Chronic in nature -Pt states this has been going on for years -he states it happens for a while and he passes a bunch of clots and then it goes away -he is a smoker and is that at increased risk of bladder cancer -he also has a history of bladder diverticulum noted on CT -plan to place a Saleem and irrigate -if this continues, may need 3 way catheter for CBI and or urology consult -UTI seems less likely, follow urine culture (3) Acute blood loss anemia: Code(s): D62 - Acute posthemorrhagic anemia Status: Acute Assessment and Plan: Last hemoglobin 7.4 -see above, repeat H&H at noon -patient received 3 units of blood during his hospitalization so far (4) Alcohol withdrawal: Qualifiers: Complication of substance-induced condition: with unspecified complication Qualified Code(s): F10.239 - Alcohol dependence with withdrawal, unspecified Code(s): F10.239 - Alcohol dependence with withdrawal, unspecified Status: Acute Assessment and Plan: Tremor has resolved and patient continues to have no hallucinations -continue CIWA last being 4 -continue scheduled Librium and Ativan p.r.n. will decrease Librium -last drink was just over 48 hours ago, monitor for worsening withdrawal -high risk for withdrawal (5) BPH (benign prostatic hyperplasia): Code(s): N40.0 - Benign prostatic hyperplasia without lower urinary tract symptoms Status: Acute Assessment and Plan: Continue with tamsulosin (6) COPD (chronic obstructive pulmonary disease): Code(s): J44.9 - Chronic obstructive pulmonary disease, unspecified Status: Acute Assessment and Plan: Continue with nebulizers -chest x-ray with no infection -patient states he feels at baseline -goal to keep saturations 90 or above (7) Hypertension: Code(s): I10 - Essential (primary) hypertension Status: Acute Assessment and Plan: Blood pressure 145/83 -continue lisinopril and metoprolol (metoprolol increased 10/19/20) Subjective Date/time seen: 10/19/20 10:41 Interval history: Pt is a 60-year-old male here for duodenal ulcer. Pt is a 60 year old here for duodenal ulcer. Patient was seen today and states he is doing okay. He is tolerating a liquid diet. He had dark stool last night but has not had any dark stool today. No hematemesis. He now has hematuria that he says he has had intermittently in the past. He says he will have it for a few days and he will passed clots then it will go away. He has never seen a dials supervisor and has smoked in the past. He understands the importance of seen 1. He has no burning or UTI symptoms. No chest pain, shortness of breath, fevers, lightheadedness or leg swelling. Exam Narrative: Exam Narrative: General: Well developed well nourished patient in NAD HEENT: normocephalic Neck: supple Neuro: Alert and oriented x4. No tremor today CV:RRR rate of 98 on exam. Telemetry showed periods
[2020-10-19] MEDS: POTASSIUM CHLORIDE 20 MEQ TABLET 40 MEQ PO (11:04)
[2020-10-19] MEDS: MAGNESIUM OXIDE 400 MG TABLET PO (11:04)
[2020-10-19] MEDS: METOPROLOL SUCCINATE EXT REL 12.5 MG TABCR PO (11:05)
[2020-10-19 12:05] LABS: Hemoglobin 7.7 g/dL (14.0-18.0)
--- NOTE | 2020-10-19 12:55 | WPDURCON ---
Assessment and Plan Assessment and plan (1) Hematuria: Code(s): R31.9 - Hematuria, unspecified Status: Acute Assessment and Plan: Long history of intermittent, painless gross hematuria, In absence of retention, no need for Saleem catheter (which is making him uncomfortable). Will get non-contrast CT-abd/pelvis to look for bladder clots. If no significant clot retention -> cystoscopy in office as outpatient. If significant clot retention -> may need clot evacuation given difficulty placing a small (16F) Saleem catheter. Urology Consult Note HPI Date Seen: 10/19/20 Requesting Physician: Jorge Luis Hernandez MD Primary Care Provider: Harpal Kasper MD Consult Narrative Narrative: Deniz Waggoner is a 60 year old male admitted with upper GI bleed. During course of admission has developed intermittent painless gross hematuria, a problem he reports to have been present for several years. He was seen in consultation in 05/[address] Mcgovern. CT-abd/pelvis at that time revealed normal upper tracts. He was instructed to f/u for cystoscopy but never complied. Currently, he does not sense retention and denies dysuria. I did not see the pt. prior to this consultation report - information gathered by reviewing old chart and discussion with RN. Review of Systems Review of Systems: ROS unobtainable: Yes other (did not obtain - patient not interviewe) [facility] Past Medical History Medical History Alcoholism Community acquired pneumonia COPD (chronic obstructive pulmonary disease) Diverticulosis Duodenal ulcer Elevated liver enzymes Gastritis GI bleed Hypertension Melena Schatzki's ring Surgical History Surgical History History of colonoscopy History of esophagogastroduodenoscopy (EGD) Family History Family History (Updated 10/17/20 @ 22:54 by Suni Villagomez NP) Grandparent Family history of lymphoma Family history of heart disease in male family member before age 55 Father Lung fibrosis Mother Emphysema of lung Social History Social History (Updated 10/17/20 @ 22:56 by Suni Villagomez NP) Social History: The patient stated that he lives with his and she is the durable power commercial litigation attorney for healthcare. 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 He typically drinks a half a pt of gin a day. He has not drink since yesterday. the patient smokes about half a pt of gin a day. He smokes a pack and half cigarettes a day. No marijuana or illicit drugs. He has 2 children. He desires to be a full code. Smoking packs per day: 1.5 Smoking cigarettes per day: 30.0 Years smoked: 40 Smoking pack-years: 60.00 Smoking status: Current every day smoker Tobacco type: cigarettes Second hand tobacco smoke exposure: Yes Alcohol intake: current Drinks per week: 20 Substance use: never Substance use type: does not use Other substance usage details: drinks 1/2 pint of gin a day Last use: 10/16/20 Gender identity (if verbalized by the patient): Male Spiritual care concerns: No Agree to blood products: Yes Meds Home Medications and Allergies Home Medications Medication Instructions Recorded Confirmed Type vitamin B complex [B-Complex] 1 tablet PO DAILY 12/23/19 10/17/20 History ascorbic acid (vitamin C) 1 g PO DAILY #30 tablet 06/09/20 10/17/20 Rx cholecalciferol (vitamin D3) 1,250 mcg PO DAILY #30 cap 06/09/20 10/17/20 Rx [D3-50 Cholecalciferol] thiamine HCl (vitamin B1) [Vitamin 100 mg PO QAM #30 tablet 06/09/20 10/17/20 Rx B-1] albuterol sulfate 2.5 mg INHALATION QID 10/17/20 10/17/20 History chlordiazepoxide HCl 10 mg PO Q8HR PRN 10/17/20 10/17/20 History lisinopril 40 mg PO DAILY 10/17/20 10/17/20 History metoprolol succinate 25 mg PO DAILY 10/17/20 10/17/20 His
--- NOTE | 2020-10-19 18:15 | ECG_ITS ---
Measurements Intervals [place] Rate: 131 P: 15 ME: 153 QRS: 62 QRSD: 74 T: 51 QT: 290 QTc: 428 Interpretive Statements SINUS TACHYCARDIA BASELINE ARTIFACT- II, III, AVF, V6 ABNORMAL ECG Electronically Signed On 10-20-2020 11:08:19 [employer] by Jareth Lee D.O.
[2020-10-19 19:43] LABS: Hematocrit 23.8 % (42.0-52.0); Hemoglobin 7.6 g/dL (14.0-18.0)
[2020-10-19] MEDS: guaiFENesin/DEXTROMETHORPHAN 10 ML UDC PO (20:57)
[2020-10-19 22:46] LABS: Hematocrit 23.4 % (42.0-52.0); Hemoglobin 7.6 g/dL (14.0-18.0)
[2020-10-20] VITALS (21 sets, daily range): BP systolic 109–152; BP diastolic 73–94; PULSE 83–109; RESP 14–20; TEMP 36.3–36.6; O2SAT 90–100
[2020-10-20] MEDS: SUCRALFATE 1 GM TABLET PO ×4 (05:32→20:54)
[2020-10-20] MEDS: chlordiazePOXIDE (*CRX) 25 MG CAPSULE PO ×3 (05:32→20:55)
[2020-10-20 05:41] LABS: Hematocrit 26.7 % (42.0-52.0); Hemoglobin 8.4 g/dL (14.0-18.0); Mean Corpuscular HGB Conc 31.5 g/dl (32-36); Mean Corpuscular Hemoglobin 27.6 pg (26-34); Mean Corpuscular Volume 87.8 fl (80-100); Mean Platelet Volume 9.1 fl (7.4-10.4); Platelet Count Result 146 k/mm3 (150-375); Red Blood Count 3.04 M/mm3 (4.6-6.20); Red Cell Distribution Width 20.1 % (11.5-14.5); White Blood Count 5.8 K/mm3 (4.5-10.0)
[2020-10-20 06:16] LABS: Anion Gap 4 mmol/L (8-16); Blood Urea Nitrogen 10 mg/dL (9-20); Calcium 7.8 mg/dL (8.4-10.2); Carbon Dioxide 31 mmol/L (22-30); Chloride 93 mmol/L (98-107); Estimated CRCL calculation 128 ml/min; Estimated Glomerular Filt Rate > 60; Glucose 98 mg/dL (75-110); Potassium 3.5 mmol/L (3.4-5.0); Sodium 128 mmol/L (137-145)
--- NOTE | 2020-10-20 09:16 | PM.IMPN ---
Progress Note: A&P Assessment and Plan (1) Bleeding duodenal ulcer: Code(s): K26.4 - Chronic or unspecified duodenal ulcer with hemorrhage Status: Acute Assessment and Plan: EGD showed active bleeding ulcer -during the EGD on 10/18/20, it was ablated with a heated probe and 2 resolution clips were placed for hemostasis as well as injection of epinephrine -the patient has no recurrence of hematemesis -He had one dark BM yesterday which could be old blood as his hemoglobin has improved -will continue Protonix b.i.d. -advance diet as tolerated--now on a soft diet with no issues -he has received 3 units of blood total -his tachycardia has improved but he was tachy again overnight. -patient understands that he needs to quit drinking alcohol (2) Hematuria: Code(s): R31.9 - Hematuria, unspecified Status: Acute Assessment and Plan: Chronic in nature -Pt states this has been going on for years -he states it happens for a while and he passes a bunch of clots and then it goes away -he is a smoker and is that at increased risk of bladder cancer -he also has a history of bladder diverticulum noted on CT as well as acute/chronic cystitis noted on CT. Urine culture is negative, suspect chronic -Saleem removed, patient still having some blood -urology saw the patient and plans to follow him outpatient (3) Acute blood loss anemia: Code(s): D62 - Acute posthemorrhagic anemia Status: Acute Assessment and Plan: Last hemoglobin improved at 8.4 today -patient received 3 units of blood during his hospitalization so far (4) Alcohol withdrawal: Qualifiers: Complication of substance-induced condition: with unspecified complication Qualified Code(s): F10.239 - Alcohol dependence with withdrawal, unspecified Code(s): F10.239 - Alcohol dependence with withdrawal, unspecified Status: Acute Assessment and Plan: He continues to have a tremor but no hallucinations -continue CIWA 10 -his Librium was decreased yesterday but he had some tachycardia and his CIWA increased so this was reinstated at 25 mg every 8 hours. He seems to be doing okay but if he worsens, this can be increased -continue p.r.n. Ativan (5) BPH (benign prostatic hyperplasia): Code(s): N40.0 - Benign prostatic hyperplasia without lower urinary tract symptoms Status: Acute Assessment and Plan: Continue with tamsulosin (6) COPD (chronic obstructive pulmonary disease): Code(s): J44.9 - Chronic obstructive pulmonary disease, unspecified Status: Acute Assessment and Plan: Continue with nebulizers, switch to Xopenex today -chest x-ray with no infection -patient states he feels at baseline -goal to keep saturations 90 or above (7) Hypertension: Code(s): I10 - Essential (primary) hypertension Status: Acute Assessment and Plan: Blood pressure 143/92 -continue lisinopril and metoprolol (metoprolol increased 10/19/20) (8) Sinus tachycardia: Code(s): R00.0 - Tachycardia, unspecified Status: Acute Assessment and Plan: Worse again overnight with the rate of 130s -no chest pain -could be due to withdrawal and or breathing treatments with albuterol -anemia seems less likely since the patient's hemoglobin has remained stable and he is not having any lightheadedness or dizziness -metoprolol was increased -Xopenex started -monitor, currently at 95 beats per minute -no arrhythmia noted on telemetry Subjective Date/time seen: 10/20/20 09:16 Interval history: Pt is a 60-year-old male here for duodenal ulcer. Patient seen today and was doing well. He is able to eat soft food and not having any issues with abdominal pain. He had 1 very small dark bowel movement yesterday but nothing so far. He states he feels a little short of breath and attributes this to his breathing treatments being held. He
[2020-10-20] MEDS: LACTATED RINGERS 1,000 ML 100 ML IV CONT ×2 (09:20→20:53)
[2020-10-20] MEDS: ASCORBIC ACID 500 MG TABLET 1000 MG PO (09:21)
[2020-10-20] MEDS: lisinopriL 20 MG TABLET 40 MG PO (09:21)
[2020-10-20] MEDS: MAGNESIUM OXIDE 400 MG TABLET PO (09:21)
[2020-10-20] MEDS: NICOTINE (*PBKC) 21 MG PATCH 1 PATCH TRANSDERM (09:22)
[2020-10-20] MEDS: PANTOPRAZOLE SODIUM IV 40 MG VIAL IV PUSH ×2 (09:22→20:55)
[2020-10-20] MEDS: METOPROLOL SUCCINATE EXT REL 12.5 MG, METOPROLOL SUCCINATE EXT REL 25 MG 37.5 MG PO (09:22)
[2020-10-20] MEDS: TAMSULOSIN HCL 0.4 MG CAPSULE PO (09:23)
[2020-10-20] MEDS: VITAMIN B COMPLEX CAPSULE 1 CAP PO (09:23)
[2020-10-20] MEDS: SERTRALINE HCL 50 MG TABLET PO (09:23)
[2020-10-20] MEDS: FOLIC ACID 1 MG/0.2 ML INJ IV PUSH (09:33)
[2020-10-20] MEDS: THIAMINE HCL 200 MG/2 ML VIAL 100 MG IV PUSH (09:33)
[2020-10-20 12:03] LABS: Sodium Urine Random 54 meq/L
[2020-10-21] VITALS (22 sets, daily range): BP systolic 109–146; BP diastolic 69–99; PULSE 71–122; RESP 14–22; TEMP 36.1–36.6; O2SAT 86–100
[2020-10-21] MEDS: chlordiazePOXIDE (*CRX) 25 MG CAPSULE PO ×3 (03:55→20:27)
[2020-10-21 05:14] LABS: Hematocrit 23.5 % (42.0-52.0); Hemoglobin 7.6 g/dL (14.0-18.0)
[2020-10-21 05:29] LABS: Alanine Aminotransferase 32 U/L (4-50); Albumin Level 2.6 g/dL (3.5-5.1); Alkaline Phosphatase 58 U/L (38-126); Anion Gap 3 mmol/L (8-16); Aspartate Amino Transferase 40 U/L (17-59); Bilirubin,Total 0.2 mg/dL (0.2-1.3); Blood Urea Nitrogen 8 mg/dL (9-20); Calcium 7.9 mg/dL (8.4-10.2); Carbon Dioxide 32 mmol/L (22-30); Chloride 93 mmol/L (98-107); Estimated CRCL calculation 155 ml/min; Estimated Glomerular Filt Rate > 60; Glucose 106 mg/dL (75-110); Potassium 3.7 mmol/L (3.4-5.0); Sodium 128 mmol/L (137-145)
[2020-10-21] MEDS: SUCRALFATE 1 GM TABLET PO ×4 (05:56→20:27)
--- NOTE | 2020-10-21 08:34 | PM.IMPN ---
Progress Note: A&P Assessment and Plan (1) Bleeding duodenal ulcer: Code(s): K26.4 - Chronic or unspecified duodenal ulcer with hemorrhage Status: Acute Assessment and Plan: EGD showed active bleeding ulcer -hemoglobin continues to drop and he continues to have occasional tachycardia and lightheadedness. He had 2 small dark bowel movements yesterday. I do not suspect a new bleed, it could be old blood. But since he is symptomatic, I am going to transfuse him 1 additional unit of blood -during the EGD on 10/18/20, it was ablated with a heated probe and 2 resolution clips were placed for hemostasis as well as injection of epinephrine -the patient has no recurrence of hematemesis -will continue Protonix b.i.d. -advance diet as tolerated--now on a soft diet with no issues -he has received 3 units of blood total and 1 added today -his tachycardia has improved but appears intermittent -patient understands that he needs to quit drinking alcohol (2) Hematuria: Code(s): R31.9 - Hematuria, unspecified Status: Acute Assessment and Plan: Chronic in nature -resolved as of 10/21/20 -Pt states this has been going on for years -he states it happens for a while and he passes a bunch of clots and then it goes away -he is a smoker and is that at increased risk of bladder cancer -he also has a history of bladder diverticulum noted on CT as well as acute/chronic cystitis noted on CT. Urine culture is negative, suspect chronic -Saleem removed -urology saw the patient and plans to follow him outpatient (3) Acute blood loss anemia: Code(s): D62 - Acute posthemorrhagic anemia Status: Acute Assessment and Plan: Last hemoglobin improved at 7.6 today -patient received 3 units of blood during his hospitalization so far and 1 was added today. See above (4) Alcohol withdrawal: Qualifiers: Complication of substance-induced condition: with unspecified complication Qualified Code(s): F10.239 - Alcohol dependence with withdrawal, unspecified Code(s): F10.239 - Alcohol dependence with withdrawal, unspecified Status: Acute Assessment and Plan: He continues to have a tremor but no hallucinations -last CIWA 4 -try and decrease Librium again today to Q 12 -continue p.r.n. Ativan -hopeful discharge in 1-2 days (5) BPH (benign prostatic hyperplasia): Code(s): N40.0 - Benign prostatic hyperplasia without lower urinary tract symptoms Status: Acute Assessment and Plan: Continue with tamsulosin (6) COPD (chronic obstructive pulmonary disease): Code(s): J44.9 - Chronic obstructive pulmonary disease, unspecified Status: Acute Assessment and Plan: Continue with nebulizers, switch to Xopenex today -chest x-ray with no infection -patient states he feels at baseline -goal to keep saturations 90 or above -required 1 L of oxygen overnight but no records of hypoxia (7) Hypertension: Code(s): I10 - Essential (primary) hypertension Status: Acute Assessment and Plan: Blood pressure 146/88 -continue lisinopril and metoprolol (metoprolol increased 10/19/20) (8) Sinus tachycardia: Code(s): R00.0 - Tachycardia, unspecified Status: Acute Assessment and Plan: Intermittent -every time I listened to him on exam, it is under 100 and telemetry shows just a few episodes of sinus tachycardia -home going to ask the nurse to manually check pulse -could be due to withdrawal, anemia, or breathing treatments or more likely a combination of all -no chest pain -metoprolol was increased -Xopenex started, albuterol stopped -monitor, currently at 95 beats per minute -no arrhythmia noted on telemetry Subjective Date/time seen: 10/21/20 08:34 Interval history: Pt is a 60-year-old male here for duodenal ulcer and alcohol with draw. Patient seen today and was doing well. He states hi
[2020-10-21] MEDS: lisinopriL 20 MG TABLET 40 MG PO (08:59)
[2020-10-21] MEDS: MAGNESIUM OXIDE 400 MG TABLET PO (08:59)
[2020-10-21] MEDS: SERTRALINE HCL 50 MG TABLET PO (08:59)
[2020-10-21] MEDS: FOLIC ACID 1 MG/0.2 ML INJ IV PUSH (08:59)
[2020-10-21] MEDS: PANTOPRAZOLE SODIUM IV 40 MG VIAL IV PUSH ×2 (08:59→20:27)
[2020-10-21] MEDS: TAMSULOSIN HCL 0.4 MG CAPSULE PO (09:00)
[2020-10-21] MEDS: ASCORBIC ACID 500 MG TABLET 1000 MG PO (09:00)
[2020-10-21] MEDS: VITAMIN B COMPLEX CAPSULE 1 CAP PO (09:00)
[2020-10-21] MEDS: THIAMINE HCL 200 MG/2 ML VIAL 100 MG IV PUSH (09:00)
[2020-10-21] MEDS: NICOTINE (*PBKC) 21 MG PATCH 1 PATCH TRANSDERM (09:00)
[2020-10-21] MEDS: METOPROLOL SUCCINATE EXT REL 12.5 MG, METOPROLOL SUCCINATE EXT REL 25 MG 37.5 MG PO (09:03)
[2020-10-21] MEDS: SODIUM CHLORIDE 0.9% IV 250 ML 30 ML IV CONT (10:29)
[2020-10-21] MEDS: guaiFENesin/DEXTROMETHORPHAN 10 ML UDC PO (20:32)
[2020-10-22] VITALS (7 sets, daily range): BP systolic 137–154; BP diastolic 94–98; PULSE 90–105; RESP 18–22; TEMP 36.2–36.6; O2SAT 94–96
[2020-10-22] MEDS: SUCRALFATE 1 GM TABLET PO ×2 (06:02→11:01)
[2020-10-22] MEDS: guaiFENesin/DEXTROMETHORPHAN 10 ML UDC PO (06:03)
[2020-10-22 06:05] LABS: Hematocrit 30.9 % (42.0-52.0); Mean Corpuscular HGB Conc 32.4 g/dl (32-36); Mean Corpuscular Hemoglobin 28.7 pg (26-34); Mean Corpuscular Volume 88.5 fl (80-100); Mean Platelet Volume 9.6 fl (7.4-10.4); Platelet Count Result 193 k/mm3 (150-375); Red Blood Count 3.49 M/mm3 (4.6-6.20); Red Cell Distribution Width 19.8 % (11.5-14.5); White Blood Count 5.5 K/mm3 (4.5-10.0)
[2020-10-22 06:31] LABS: Anion Gap 5 mmol/L (8-16); Blood Urea Nitrogen 9 mg/dL (9-20); Calcium 8.4 mg/dL (8.4-10.2); Carbon Dioxide 29 mmol/L (22-30); Chloride 96 mmol/L (98-107); Estimated CRCL calculation 128 ml/min; Estimated Glomerular Filt Rate > 60; Glucose 90 mg/dL (75-110); Potassium 4.4 mmol/L (3.4-5.0); Sodium 130 mmol/L (137-145)
[2020-10-22] MEDS: ASCORBIC ACID 500 MG TABLET 1000 MG PO (08:22)
[2020-10-22] MEDS: THIAMINE HCL 200 MG/2 ML VIAL 100 MG IV PUSH (08:23)
[2020-10-22] MEDS: MAGNESIUM OXIDE 400 MG TABLET PO (08:23)
[2020-10-22] MEDS: lisinopriL 20 MG TABLET 40 MG PO (08:23)
[2020-10-22] MEDS: VITAMIN B COMPLEX CAPSULE 1 CAP PO (08:24)
[2020-10-22] MEDS: TAMSULOSIN HCL 0.4 MG CAPSULE PO (08:24)
[2020-10-22] MEDS: NICOTINE (*PBKC) 21 MG PATCH 1 PATCH TRANSDERM (08:24)
[2020-10-22] MEDS: PANTOPRAZOLE SODIUM IV 40 MG VIAL IV PUSH (08:24)
[2020-10-22] MEDS: SERTRALINE HCL 50 MG TABLET PO (08:24)
[2020-10-22] MEDS: METOPROLOL SUCCINATE EXT REL 12.5 MG, METOPROLOL SUCCINATE EXT REL 25 MG 37.5 MG PO (08:24)
[2020-10-22] MEDS: chlordiazePOXIDE (*CRX) 25 MG CAPSULE PO (08:28)
[2020-10-22] MEDS: FOLIC ACID 1 MG/0.2 ML INJ IV PUSH (08:29)
--- NOTE | 2020-10-22 15:10 | PM.DS ---
DS: Admitting Diagnosis Admitting Diagnosis Admitting Diagnosis: Duodenal ulcer DS: Discharge Diagnosis Discharge Diagnosis (1) Bleeding duodenal ulcer: Code(s): K26.4 - Chronic or unspecified duodenal ulcer with hemorrhage Status: Acute Assessment and Plan: EGD showed active bleeding ulcer -hemoglobin 10.0 at discharge -during the EGD on 10/18/20, the ulcer was ablated with a heated probe and 2 resolution clips were placed for hemostasis as well as injection of epinephrine -the patient has no recurrence of hematemesis and did not have any dark stools today or the day prior. -will continue Protonix b.i.d. -able to tolerate a regular diet discharge -he received 4 Units of blood total during his hospitalization -patient understands that he needs to quit drinking alcohol (2) Hematuria: Code(s): R31.9 - Hematuria, unspecified Status: Acute Assessment and Plan: Chronic in nature -resolved as of 10/21/20 -Pt states this has been going on for years -he states it happens for a while and he passes a bunch of clots and then it goes away -he is a smoker and is that at increased risk of bladder cancer -he also has a history of bladder diverticulum noted on CT as well as acute/chronic cystitis noted on CT. Urine culture is negative, suspect chronic -Saleem removed -urology saw the patient and plans to follow him outpatient (3) Acute blood loss anemia: Code(s): D62 - Acute posthemorrhagic anemia Status: Acute Assessment and Plan: Hemoglobin 10 at discharge -patient educated about the signs of blood loss to come back to emergency room for (4) Alcohol withdrawal: Qualifiers: Complication of substance-induced condition: with unspecified complication Qualified Code(s): F10.239 - Alcohol dependence with withdrawal, unspecified Code(s): F10.239 - Alcohol dependence with withdrawal, unspecified Status: Acute Assessment and Plan: He continues to have a tremor but no hallucinations -patient is being weaned off Librium at home -he assures me he is not going to drink alcohol. He has been on Librium in the past and understands how this works -he has been to rehab in the past and plans to look into that again -he understands he needs come back to emergency room if he starts to have hallucinations (5) BPH (benign prostatic hyperplasia): Code(s): N40.0 - Benign prostatic hyperplasia without lower urinary tract symptoms Status: Acute Assessment and Plan: Continue with tamsulosin (6) COPD (chronic obstructive pulmonary disease): Code(s): J44.9 - Chronic obstructive pulmonary disease, unspecified Status: Acute Assessment and Plan: Patient is off oxygen -continue home breathing treatments (7) Hypertension: Code(s): I10 - Essential (primary) hypertension Status: Acute Assessment and Plan: Blood pressure 137/94 -continue lisinopril. Home metoprolol increased (8) Sinus tachycardia: Code(s): R00.0 - Tachycardia, unspecified Status: Acute Assessment and Plan: Intermittent Improved at discharge -could be due to withdrawal, anemia, or breathing treatments or more likely a combination of all -no chest pain -metoprolol was increased at discharge -no arrhythmia noted on telemetry DS: Summary Hospital Course Reason for hospitalization: Duodenal ulcer Hospital Course: Patient is a 60-year-old male with a past medical history of alcoholism who presented emergency room for vomiting and diarrhea. He was vomiting up some blood and had dark stool. Vitals in the ER were temperature 37.0? C, pulse 130, respiratory rate 31, blood pressure 106/90, pulse is 99. Initial hemoglobin 6.5, hematocrit 20.4, white blood cell count 15.7, platelets 176. Sodium decreased at 129, BUN elevated 51 likely due to upper GI bleed. Patient was admitted to the hospitalist ser
== END 2020-10-22 13:50 | disposition home health service (06) | DRG 241 ==
LOC: ANHED 13:07 → ANH2MED 15:56
PROVIDERS: Family Medicine; Internal Medicine Gastroenterology; Nurse Practitioner; Physician Assistant; Admitting Provider Family Medicine; Emergency Provider Emergency Medicine; PCP Family Medicine; Visit Provider Internal Medicine
PROC: 0DJ08ZZ Inspection of Upper Intestinal Tract, Via Natural or Artificial Opening Endoscopic (ICD-10-PCS; CPT 43235; principal; 2020-10-18 12:30)
DX: K26.4 Chronic or unspecified duodenal ulcer with hemorrhage (principal); D62 Acute posthemorrhagic anemia; F10.239 Alcohol dependence with withdrawal, unspecified; K44.9 Diaphragmatic hernia without obstruction or gangrene; K21.00 Gastro-esophageal reflux disease with esophagitis, without bleeding; J44.9 Chronic obstructive pulmonary disease, unspecified; N40.1 Benign prostatic hyperplasia with lower urinary tract symptoms; R31.0 Gross hematuria; R00.0 Tachycardia, unspecified; I10 Essential (primary) hypertension; K57.90 Diverticulosis of intestine, part unspecified, without perforation or abscess without bleeding; R74.8 Abnormal levels of other serum enzymes; F17.210 Nicotine dependence, cigarettes, uncomplicated
CPT/HCPCS: 36415; 36430; 71046; 74176; 76705; 80048; 80053; 80074; 80076; 81001; 83605; 83690; 83735; 84300; 84443; 85014; 85018; 85025; 85027; 85610; 85730; 86850; 86900; 86901; 86920; 86923; 87081; 88305; 93005; 94640; 96361; 96374; 96375; 96376; 97161; 97165; 99285; A9270; C9113; G0378; G0379; J0171; J2001; J2405; J2704; J3411; J7030; J7040; J7050; J7120; P9016

== ENCOUNTER → 2021-01-13 16:01 | Outpatient (CLI) | payer OTHER, SELFPAY ==
[2021-01-17 02:02] LABS: SARS-CoV-2 RNA PCR Negative
== END ==
PROVIDERS: PCP Family Medicine; Visit Provider Family Medicine
DX: R68.89 Other general symptoms and signs (principal); Z20.822 Contact with and (suspected) exposure to COVID-19
CPT/HCPCS: C9803; U0003; U0005

== ENCOUNTER 2021-01-17 14:27 | Outpatient (CLI) | payer OTHER, SELFPAY ==
--- NOTE | ~2021-01-17 | XR_ITS ---
XR chest 2V 01/17/2021 14:48 Indication: COPD with exacerbation. Cough and congestion. Procedure: 2 view chest Comparison: Comparison to multiple prior studies sequentially, with oldest reviewed study dated 01/24. Findings: There are multiple healing/healed rib deformities. Heart size normal. No focal air space di sease, pulmonary edema, pleural effusion or suspected pneumothorax. Impression: 1: No acute cardiopulmonary disease. 2: Multiple healing/healed bilateral rib fractures of varying age. Reviewed, dictated and finalized at location A. Impression: 1: No acute cardiopulmonary disease. 2: Multiple healing/healed bilateral rib fractures of varying age.
[2021-01-17 16:12] LABS: Basophils Percent Auto 0.3 % (0.2-1.2); Hematocrit 31.9 % (42.0-52.0); Hemoglobin 10.1 g/dL (14.0-18.0); Immature Granulocyte Absolute 0.24 K/mm3 (0.00-0.031); Immature Granulocyte Percent A 2.6 % (0-0.5); Immature Reticulocyte Fraction 22.9 % (3.0-15.9); Lymphocytes Absolute Auto 0.39 K/mm3 (0.9-3.2); Lymphocytes Percent Auto 4.3 % (18.3-44.2); Mean Corpuscular HGB Conc 31.7 g/dl (32-36); Mean Corpuscular Hemoglobin 25.4 pg (26-34); Mean Corpuscular Volume 80.4 fl (80-100); Mean Platelet Volume 8.9 fl (7.4-10.4); Monocytes Absolute Auto 0.3 K/mm3 (0.1-0.6); Monocytes Percent Auto 3.6 % (2.6-8.5); Neutrophils Absolute Auto 8.1 K/mm3 (1.3-6.7); Neutrophils Percent Auto 89.2 % (45.5-73.1); Platelet Count Result 285 k/mm3 (150-375); Red Blood Count 3.97 M/mm3 (4.6-6.20); Red Cell Distribution Width 19.6 % (11.5-14.5); Reticulocyte Hemoglobin Conten 33.6 pg (28.2-35.7); Reticulocyte Percent 2.63 % (0.7-4.3); White Blood Count 9.1 K/mm3 (4.5-10.0)
[2021-01-17 16:30] LABS: Lymphocytes Absolute Manual 0.45 K/mm3 (1.1-4.5); Lymphocytes Percent Manual 5 % (18-44); Monocytes Absolute Manual 0.45 K/mm3 (0.1-0.90); Monocytes Percent Manual 5 % (3-9); Neutrophils Percent Manual 89 % (46-73); Total Cells Counted 100
[2021-01-17 16:31] LABS: Metamyelocytes Percent 1 %; Platelet Estimate Adequate (Adequate)
[2021-01-17 16:32] LABS: Anisocytosis 1+ (NORMAL); Ovalocytes 1+ (NORMAL); Target Cells 1+ (NORMAL)
[2021-01-17 16:38] LABS: Alanine Aminotransferase 64 U/L (4-50); Albumin Level 4.1 g/dL (3.5-5.1); Alkaline Phosphatase 88 U/L (38-126); Anion Gap 13 mmol/L (8-16); Aspartate Amino Transferase 136 U/L (17-59); Bilirubin,Total 0.5 mg/dL (0.2-1.3); Blood Urea Nitrogen 9 mg/dL (9-20); Calcium 9.3 mg/dL (8.4-10.2); Carbon Dioxide 27 mmol/L (22-30); Chloride 87 mmol/L (98-107); Cholesterol 207 mg/dL (0-200); Estimated Glomerular Filt Rate > 60; Glucose 108 mg/dL (75-110); Lactate Dehydrogenase 530 U/L (313-618); Potassium 4.2 mmol/L (3.4-5.0); Sodium 127 mmol/L (137-145); Triglycerides 55 mg/dL (<150)
[2021-01-17 16:41] LABS: Creatinine Urine 296.7 mg/dL
[2021-01-17 16:43] LABS: LDL Cholesterol Direct 40 mg/dL
[2021-01-17 16:48] LABS: Transferrin 351 mg/dL (206-381)
[2021-01-17 17:08] LABS: Prostate Specific Antigen 0.8 ng/mL (< OR = 4.0); Thyroid Stimulating Hormone 0.883 uIU/mL (0.465-4.680)
[2021-01-17 17:37] LABS: Folic Acid 10.5 ng/mL (2.76->20)
[2021-01-17 17:39] LABS: Iron 28 ug/dL (49-181)
[2021-01-17 17:42] LABS: HDL Direct 134 mg/dL
[2021-01-17 17:48] LABS: Percent Iron Saturation 7 % (20-50)
[2021-01-17 17:53] LABS: Vitamin D 25 Hydroxy 47.1 ng/mL
[2021-01-17 17:57] LABS: Free T4 Free Thyroxine 1.11 ng/mL (0.78-2.19)
[2021-01-17 19:28] LABS: MALB Creatinine Ratio 165.7 mg/g (0-30); Microalbumin Urine Random 491.7 mg/L (0-16.7)
== END 2021-01-17 14:28 | disposition home or self-care (01) ==
LOC: ANHIMG 14:36
PROVIDERS: PCP Family Medicine; Visit Provider Nurse Practitioner Family
DX: R31.0 Gross hematuria (principal); R00.0 Tachycardia, unspecified; E86.0 Dehydration; Z13.220 Encounter for screening for lipoid disorders; Z12.5 Encounter for screening for malignant neoplasm of prostate; I10 Essential (primary) hypertension; R53.83 Other fatigue; D64.9 Anemia, unspecified; Z00.00 Encounter for general adult medical examination without abnormal findings; J44.9 Chronic obstructive pulmonary disease, unspecified
CPT/HCPCS: 36415; 71046; 80053; 80061; 82043; 82306; 82607; 82728; 82746; 83540; 83550; 83615; 84153; 84439; 84443; 84466; 85025; 85046; G0103

== ENCOUNTER 2021-03-02 10:19 | Outpatient (CLI) | payer OTHER, SELFPAY ==
[2021-03-02 11:11] LABS: Alanine Aminotransferase 46 U/L (4-50); Albumin Level 4.2 g/dL (3.5-5.1); Alkaline Phosphatase 133 U/L (38-126); Anion Gap 11 mmol/L (8-16); Aspartate Amino Transferase 148 U/L (17-59); Bilirubin,Total 0.6 mg/dL (0.2-1.3); Blood Urea Nitrogen 6 mg/dL (9-20); Carbon Dioxide 30 mmol/L (22-30); Chloride 92 mmol/L (98-107); Estimated Glomerular Filt Rate > 60; Glucose 72 mg/dL (75-110); Potassium 4.3 mmol/L (3.4-5.0); Sodium 133 mmol/L (137-145)
[2021-03-02 13:05] LABS: Hepatitis B Surface Antigen Negative (Negative)
[2021-03-02 13:10] LABS: HAV RESULT Negative (Negative); Hepatitis B Core IgM Result Negative (Negative)
[2021-03-02 13:22] LABS: Hepatitis C Virus Antibody Negative (Negative)
== END 2021-03-02 10:20 | disposition home or self-care (01) ==
LOC: ANHLAB 10:22
PROVIDERS: PCP Family Medicine; Visit Provider Nurse Practitioner
DX: R94.5 Abnormal results of liver function studies (principal); I10 Essential (primary) hypertension; E87.1 Hypo-osmolality and hyponatremia
CPT/HCPCS: 36415; 80053; 80074